=== PATIENT | female | born 1975 | race Hispanic/Latino ===

== ENCOUNTER 2018-05-28 06:14 | Emergency (ER) | payer SELFPAY ==
--- OUTSIDE RECORDS SUMMARY | 2018-05-28 06:15 | XMS REPORT | Clinical Summary ---
:1975 Author Organization [facility] Address [address] [place] [address] Phone Care Team Providers Name Role Phone Unavailable Primary Care Provider Unavailable Allergies No Known Allergies Current Medications Prescription Sig. Disp. Refills Start Date End Date Status polyethylene glycol Take 17 g by 255 g 11 10/26/2016 Active (GLYCOLAX) 17 mouth daily. gram/dose powder ferrous sulfate 325 Take 1 tablet 30 tablet 11 10/26/2016 10/26/2017 (65 FE) MG EC tablet (325 mg total) by mouth daily with breakfast. Active Problems Problem Noted Date Hemorrhoids, unspecified hemorrhoid type 10/29/2016 UGIB (upper gastrointestinal bleed) 10/24/2016 Anemia 10/24/2016 Black stool 10/24/2016 Colicky RUQ abdominal pain 10/24/2016 Social History Tobacco Use Types Packs/Day Years Used Date Never Smoker Sex Assigned at Date Recorded Not on file Last Filed Vital Signs Not on file Plan of Treatment Not on file Results Not on fileafter 05/27/2017
[2018-05-28] MEDS ORDERED: METHYLPREDNISOLONE 125 MG INJ ONE (06:50)
[2018-05-28] MEDS ORDERED: DIPHENHYDRAMINE 50 MG/ML VIAL ONE (06:50)
[2018-05-28] MEDS ORDERED: FAMOTIDINE 20 MG/2 ML VIAL IV ONE (06:50)
[2018-05-28] MEDS ORDERED: ONDANSETRON 4 MG/2 ML VIAL ONE (06:50)
--- NOTE | 2018-05-28 07:30 | EDPHYS ---
Physician Documentation [facility] Name: Salma Reid Age: 42 yrs Sex: Female : 1975 Arrival Date: 05/28/2018 Time: 06:14 Bed 15 Private MD: ED Physician Feng Gomez HPI: 05/28 06:47 This 42 yrs old Female presents to ER via Wheelchair with complaints of jr8 itching and nausea. 06:47 The patient presents with itching, vomiting. Onset: The symptoms/episode began/occurred jr8 acutely, today. Associated signs and symptoms: The patient has no apparent associated signs or symptoms. Possible causes: antibiotics, clindamycin. Severity of symptoms: At their worst the symptoms were mild in the emergency department the symptoms are unchanged. The patient has experienced a previous episode. The patient has not recently seen a physician. Patient has known allergy to clindamycin. Stated that she accidently took one. Started to have itching and nausea . 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 - Ebola Screening: : No symptoms or risks identified at this time. - Social history:: Smoking status: Patient/guardian denies using tobacco. ROS: 06:47 Eyes: Negative for injury, pain, redness, and discharge, ENT: Negative for injury, jr8 pain, and discharge, Neck: Negative for injury, pain, and swelling, Cardiovascular: Negative for chest pain, palpitations, and edema, Respiratory: Negative for shortness of breath, cough, wheezing, and pleuritic chest pain, Back: Negative for injury and pain, MS/Extremity: Negative for injury and deformity, Skin: Negative for injury, rash, and discoloration, Neuro: Negative for headache, weakness, numbness, tingling, and seizure. 06:47 Abdomen/GI: Positive for nausea. Exam: 06:47 Eyes: Pupils equal round and reactive to light, extra-ocular motions intact. Lids and jr8 lashes normal. Conjunctiva and sclera are non-icteric and not injected. Cornea within normal limits. Periorbital areas with no swelling, redness, or edema. ENT: Nares patent. No nasal discharge, no septal abnormalities noted. Tympanic membranes are normal and external auditory canals are clear. Oropharynx with no redness, swelling, or masses, exudates, or evidence of obstruction, uvula midline. Mucous membranes moist. Neck: Trachea midline, no thyromegaly or masses palpated, and no cervical lymphadenopathy. Supple, full range of motion without nuchal rigidity, or vertebral point tenderness. No Meningismus. Cardiovascular: Regular rate and rhythm with a normal S1 and S2. No gallops, murmurs, or rubs. Normal PMI, no JVD. No pulse deficits. Respiratory: Lungs have equal breath sounds bilaterally, clear to auscultation and percussion. No rales, rhonchi or wheezes noted. No increased work of breathing, no retractions or nasal flaring. Abdomen/GI: Soft, non-tender, with normal bowel sounds. No distension or tympany. No guarding or rebound. No evidence of tenderness throughout. Back: No spinal tenderness. No costovertebral tenderness. Full range of motion. Skin: Warm, dry with normal turgor. Normal color with no rashes, no lesions, and no evidence of cellulitis. MS/ Extremity: Pulses equal, no cyanosis. Neurovascular intact. Full, normal range of motion. Neuro: Awake and alert, GCS 15, oriented to person, place, time, and situation. Cranial nerves II-XII grossly intact. Motor strength 5/5 in all extremities. Sensory grossly intact. Cerebellar exam normal. Normal gait. Vital Signs: 06:32 BP 95 / 54; Pulse 72; Resp 16; Temp 98.1; Pulse Ox 99% on R/A; lp1 06:41 Weight 80.74 kg; Height 5 ft. (152.40 cm); ea 07:04 BP 109 / 57; Pulse 71; Resp 16; Pulse Ox 98% on R/A; lp1 07:33 BP 112 / 92; Pulse 79; Resp 17; Pulse Ox 100% ; tw2 06:41 Body Mass Index 34.76 (80.74 kg, 152.40 cm) ea MDM: 06:16 Patient medically screened. jr8 07:28 Data reviewed: vital signs, nurses notes, and as a result, I will discharge patient. jr8 Data interpreted: Pulse oximetry: on room air is 98 %. Interpretation: normal. Counseling: I had a detailed discussion with the patient and/or guardian regarding: the historical points, exam findings, and any diagnostic results supporting the discharge/admit diagnosis, the need for outpatient follow up, a family practitioner, to return to the emergency department if symptoms worsen or persist or if there are any questions or concerns that arise at home. Response to treatment: the patient's symptoms have resolved after treatment. 05/28 06:46 Order name: IV; Complete Time: 07:03 jr8 Administered Medications: 07:03 Drug: SOLU-Medrol 125 mg Route: IVP; Site: left hand; lp1 07:50 Follow up: Response: No adverse reaction em 07:03 Drug: Benadryl 25 mg Route: IVP; Site: left hand; lp1 07:51 Follow up: Response: No adverse reaction; Marked relief of symptoms em 07:03 Drug: Pepcid 20 mg Route: IVP; Site: left hand; lp1 07:51 Follow up: Response: No adverse reaction em 07:04 Drug: Zofran 4 mg Route: IVP; Site: left hand; lp1 07:51 Follow up: Response: No adverse reaction; Nausea is decreased em Disposition: 05/28/18 07:29 Discharged to Home. Impression: Allergic Reaction. - Condition is Stable. - Discharge Instructions: Anaphylactic Reaction, Adult. - Prescriptions for Prednisone 20 mg Oral Tablet - take 1 tablet by ORAL route once daily for 5 days; 5 tablet. - Medication Reconciliation Form, Thank You Letter, Antibiotic Education, Prescription Opioid Use form. - Follow up: Private Physician; When: 2 - 3 days; Reason: Recheck today's complaints, Continuance of care, Re-evaluation by your physician. - Problem is new. - Symptoms have improved. Addendum: 05/30/2018 07:11 Co-signature as Attending Physician, Feng Gomez MD. r n Signatures: Feng Gomez MD MD rn Pena, Laura RN RN lp1 Jarrell Ferrell PA PA jr8 Sasha Mclean RN RN tw2 Nasreen Trotter RN RN Kraig Garay [employer] em Corrections: (The following items were deleted from the chart) 05/28 07:55 07:29 05/28/2018 07:29 Discharged to Home. Impression: Allergic Reaction. Condition is tw2 Stable. Forms are Medication Reconciliation Form, Thank You Letter, Antibiotic Education, Prescription Opioid Use. Follow up: Private Physician; When: 2 - 3 days; Reason: Recheck today's complaints, Continuance of care, Re-evaluation by your physician. Problem is new. Symptoms have improved. jr8
--- NOTE | 2018-05-28 07:30 | ER ---
Nurse's Notes [facility] Name: Salma Reid Age: 42 yrs Sex: Female : 1975 Arrival Date: 05/28/2018 Time: 06:14 Bed 15 Private MD: Diagnosis: Allergic Reaction Presentation: 05/28 06:29 Presenting complaint: Patient states: Reports she had accidentally taken clindamycin ea thinking it was amoxicillin. Pt reports she recently found out she was allergic to the medication. Pt reports she started itching and her tongue, lips felt swollen. Transition of care: patient was not received from another setting of care. Onset of symptoms was May 28, 2018. Risk Assessment: Do you want to hurt yourself or someone else? Patient reports no desire to harm self or others. Initial Sepsis Screen: Does the patient meet any 2 criteria? No. Patient's initial sepsis screen is negative. Does the patient have a suspected source of infection? No. Patient's initial sepsis screen is negative. Care prior to arrival: None. 06:29 Method Of Arrival: Wheelchair ea 06:29 Acuity: YESSENIA 3 ea Triage Assessment: 06:37 General: Appears uncomfortable, Behavior is anxious. General: Pt reports she is itching ea all over. . Pain: Denies pain. Neuro: Level of Consciousness is awake, alert, obeys commands, Oriented to person, place, time, situation. Respiratory: Airway is patent Respiratory effort is even, unlabored, Respiratory pattern is regular, symmetrical. Derm: Skin is pink, warm \T\ dry. 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 - Ebola Screening: : No symptoms or risks identified at this time. - Social history:: Smoking status: Patient/guardian denies using tobacco. Screenin:31 Abuse screen: Denies threats or abuse. Denies injuries from another. Nutritional lp1 screening: No deficits noted. Tuberculosis screening: No symptoms or risk factors identified. Fall Risk None identified. Assessment: 06:31 General: Appears uncomfortable, Behavior is anxious. Pain: Denies pain. Neuro: Level of lp1 Consciousness is awake, alert, obeys commands. Cardiovascular: Patient's skin is warm and dry. Respiratory: Airway is patent Respiratory effort is even, unlabored, Breath sounds are clear bilaterally. GI: Pt is actively vomiting undigested food, x1. : No signs and/or symptoms were reported regarding the genitourinary system. EENT: No signs and/or symptoms were reported regarding the EENT system. Derm: Skin is pink, warm \T\ dry. Reports itching, No rash noted. Musculoskeletal: Circulation, motion, and sensation intact. 07:04 Reassessment: small patch of hives noted to right forearm. lp1 07:24 Reassessment: Patient appears in no apparent distress at this time. Patient and/or em family updated on plan of care and expected duration. Pain level reassessed. Patient is alert, oriented x 3, equal unlabored respirations, skin warm/dry/pink. hives have resolved, denies itching or symptoms Patient denies pain at this time. Patient states feeling better. Vital Signs: 06:32 BP 95 / 54; Pulse 72; Resp 16; Temp 98.1; Pulse Ox 99% on R/A; lp1 06:41 Weight 80.74 kg; Height 5 ft. (152.40 cm); ea 07:04 BP 109 / 57; Pulse 71; Resp 16; Pulse Ox 98% on R/A; lp1 07:33 BP 112 / 92; Pulse 79; Resp 17; Pulse Ox 100% ; tw2 06:41 Body Mass Index 34.76 (80.74 kg, 152.40 cm) ED Course: 06:14 Patient arrived in ED. ds1 06:16 Jarrell Ferrell PA is PHCP. jr8 06:16 Feng Gomez MD is Attending Physician. jr8 06:30 Marianne Yeboah RN is Primary Nurse. lp1 06:30 Inserted saline lock: 20 gauge in left hand, using aseptic technique. lp1 06:32 Arm band placed on right wrist. lp1 06:33 Patient has correct armband on for positive identification. Pulse ox on. NIBP on. lp1 06:37 Triage completed. ea 07:54 No provider procedures requiring assistance completed. IV discontinued, intact, tw2 bleeding controlled, No redness/swelling at site. Pressure dressing applied. Administered Medications: 07:03 Drug: SOLU-Medrol 125 mg Route: IVP; Site: left hand; lp1 07:50 Follow up: Response: No adverse reaction em 07:03 Drug: Benadryl 25 mg Route: IVP; Site: left hand; lp1 07:51 Follow up: Response: No adverse reaction; Marked relief of symptoms em 07:03 Drug: Pepcid 20 mg Route: IVP; Site: left hand; lp1 07:51 Follow up: Response: No adverse reaction em 07:04 Drug: Zofran 4 mg Route: IVP; Site: left hand; lp1 07:51 Follow up: Response: No adverse reaction; Nausea is decreased em Outcome: 07:29 Discharge ordered by . jr8 07:54 Discharged to home ambulatory. tw2 07:54 Condition: stable 07:54 Discharge instructions given to patient, Instructed on discharge instructions, follow up and referral plans. medication usage, Demonstrated understanding of instructions, follow-up care, medications, Prescriptions given X 1. 07:55 Patient left the ED. tw2 Signatures: Kraig Andrews LVN FINANCIAL SALES REPRESENTATIVE Shayy Beebe ds1 Marianne Yeboah RN RN lp1 Jarrell Ferrell PA PA jr8 Sasha Mclean RN RN tw2 Nasreen Trotter RN RN ea Corrections: (The following items were deleted from the chart) 06:33 06:32 Arm band placed on left wrist. lp1 lp1
== END 2018-05-28 07:55 | disposition home or self-care (01) ==
LOC: ER 06:14
DX: T78.40XA Allergy, unspecified, initial encounter (principal); X58.XXXA Exposure to other specified factors, initial encounter; Z88.1 Allergy status to other antibiotic agents; R11.0 Nausea; L29.9 Pruritus, unspecified
CPT/HCPCS: 96374; 96375; 99284; J2405; J2930

== ENCOUNTER 2018-06-21 08:18 | Emergency (ER) | payer SELFPAY ==
[2018-06-21] MEDS ORDERED: DIPHENHYDRAMINE 50 MG/ML VIAL ONE (08:49)
[2018-06-21] MEDS ORDERED: METHYLPREDNISOLONE 125 MG INJ ONE (08:49)
[2018-06-21] MEDS ORDERED: FAMOTIDINE 20 MG/2 ML VIAL IV ONE (08:50)
[2018-06-21] MEDS ORDERED: NA CHLORIDE 0.9% 250 ML ONE (08:50)
[2018-06-21] MEDS ORDERED: NA CHLORIDE 0.9% 500 ML ONE (09:14)
[2018-06-21] MEDS ORDERED: ONDANSETRON 4 MG/2 ML VIAL ONE (09:16)
--- NOTE | 2018-06-21 10:10 | ER ---
Nurse's Notes [facility] Name: Salma Reid Age: 42 yrs Sex: Female : 1975 Arrival Date: 06/21/2018 Time: 08:20 Bed 24 Private MD: None, None Diagnosis: Acute allergic reaction Presentation: 06/21 08:33 Presenting complaint: Patient states: Patient reports she took an unknown antibiotic ss this morning and began itching shortly after, a similar reaction she had when she took penicillin. Denies shortness of breath. Transition of care: patient was not received from another setting of care. Onset: The symptoms/episode began/occurred this morning. Anaphylaxis evaluation, no signs or symptoms of anaphylaxis were noted. Onset of symptoms was June 21, 2018. Risk Assessment: Do you want to hurt yourself or someone else? Patient reports no desire to harm self or others. Initial Sepsis Screen: Does the patient meet any 2 criteria? No. Patient's initial sepsis screen is negative. Does the patient have a suspected source of infection? No. Patient's initial sepsis screen is negative. Care prior to arrival: None. 08:33 Method Of Arrival: Ambulatory ss 08:33 Acuity: YESSENIA 4 ss Historical: - Allergies: 08:35 Clindamycin; ss 08:35 PENICILLINS; ss - PMHx: 08:35 Kidney stones; Rheumatoid Arthritis; ss - PSHx: 08:35 ; ss - Immunization history:: Adult Immunizations up to date. - Social history:: Smoking status: Patient/guardian denies using tobacco. - Ebola Screening: : Patient denies exposure to infectious person Patient denies travel to an Ebola-affected area in the 21 days before illness onset. - Family history:: not pertinent. - Hospitalizations: : No recent hospitalization is reported. Screenin:48 Abuse screen: Denies threats or abuse. Denies injuries from another. Nutritional ch screening: No deficits noted. Tuberculosis screening: No symptoms or risk factors identified. Fall Risk None identified. Assessment: 08:35 General: Appears in no apparent distress. uncomfortable, Behavior is anxious. Pain: ch Denies pain. Neuro: No deficits noted. Level of Consciousness is awake, alert, obeys commands. Cardiovascular: No deficits noted. Respiratory: Airway is patent Trachea midline Respiratory effort is even, unlabored, Breath sounds are clear bilaterally. GI: No signs and/or symptoms were reported involving the gastrointestinal system. Derm: Skin is intact, Skin is pink, warm \T\ dry. pt c/o itching all over, feeling tight in her ankles, feet and barney wrists/hands. states she feels anxious as well. 08:35 Musculoskeletal: No signs and/or symptoms reported regarding the musculoskeletal system.ch 09:05 Reassessment: Patient appears in no apparent distress at this time. pt states the ch ichting is better but she feels very dizzy and nausous. erp notified, pt medicated per orders. 09:48 Reassessment: Patient appears in no apparent distress at this time. Patient and/or ch family updated on plan of care and expected duration. Pain level reassessed. Patient is alert, oriented x 3, equal unlabored respirations, skin warm/dry/pink. Vital Signs: 08:35 BP 113 / 64; Pulse 76; Resp 18; Temp 98.0; Pulse Ox 98% on R/A; Weight 78.02 kg; Height ss 5 ft. 0 in. (152.40 cm); Pain 0/10; 09:48 BP 108 / 62; Pulse 64; Resp 15; Temp 98.3; Pulse Ox 99% on R/A; Pain 0/10; ch 08:35 Body Mass Index 33.59 (78.02 kg, 152.40 cm) ED Course: 08:20 Patient arrived in ED. sb2 08:20 None, None is Private Physician. sb2 08:27 Feng Gomez MD is Attending Physician. rn 08:34 Triage completed. ss 08:35 Arm band placed on right wrist. ss 08:40 Patient has correct armband on for positive identification. Placed in gown. Bed in low ch position. Call light in reach. Side rails up X 1. Adult w/ patient. Pulse ox on. NIBP on. 08:43 Michelle Lopez, MARILIN is Primary Nurse. ch 08:45 No apparent distress. Resting quietly. ch 08:45 No provider procedures requiring assistance completed. Inserted saline lock: 22 gauge ch in right hand, using aseptic technique. Blood collected. 10:20 IV discontinued, intact, bleeding controlled, No redness/swelling at site. Pressure ch dressing applied. Administered Medications: 08:45 Drug: SOLU-Medrol 125 mg Route: IVP; Site: right hand; ch 09:15 Follow up: Response: No adverse reaction; Marked relief of symptoms ch 08:45 Drug: Benadryl 25 mg Route: IVP; Site: right hand; ch 09:15 Follow up: Response: No adverse reaction; Marked relief of symptoms ch 09:15 Follow up: Response: No adverse reaction; Marked relief of symptoms ch 08:45 Drug: Pepcid 20 mg Route: IVP; Site: right hand; ch 09:15 Follow up: Response: No adverse reaction; Marked relief of symptoms ch 09:15 Drug: NS 0.9% 500 ml Route: IV; Rate: bolus; Site: right hand; ch 10:21 Follow up: IV Status: Completed infusion ch 09:15 Drug: Zofran 4 mg Route: IVP; Site: right hand; ch 09:50 Follow up: Response: No adverse reaction; Marked relief of symptoms ch Outcome: 10:10 Discharge ordered by . rn 10:20 Discharged to home ambulatory. 10:20 Condition: good 10:20 Discharge instructions given to patient, Instructed on discharge instructions, follow up and referral plans. medication usage, Demonstrated understanding of instructions, follow-up care, medications, Prescriptions given X 2. 10:21 Patient left the ED. Signatures: Michelle Lopez RN MARILIN Feng Gomez MD MD rn Smirch, Shelby, RN RN ss Billeau, Sheri sb2
--- NOTE | 2018-06-21 10:10 | EDPHYS ---
Physician Documentation [facility] Name: Salma Reid Age: 42 yrs Sex: Female : 1975 Arrival Date: 06/21/2018 Time: 08:20 Bed 24 Private MD: None, None ED Physician Feng Gomez HPI: 06/21 08:57 This 42 yrs old Female presents to ER via Ambulatory with complaints of rn Allergic Reaction. 08:57 The patient presents with itching. Onset: The symptoms/episode began/occurred this rn morning. Associated signs and symptoms: Pertinent positives: nausea, Pertinent negatives: abdominal pain, fever, shortness of breath, vomiting. Possible causes: antibiotics. At home the patient or guardian has treated the symptoms with nothing. Severity of symptoms: At their worst the symptoms were mild in the emergency department the symptoms are unchanged. The patient has experienced a previous episode. The patient has been recently seen by a physician:. Reports thinks having allergic reaction, given an abx for dental problem, thinks clindamycin, is allergic to clindamycin, took this AM, + itching and nausea, no sob/swelling. Similar allergic reaction in past but last time had swollen lips as well.. Historical: - Allergies: 08:35 Clindamycin; ss 08:35 PENICILLINS; ss - PMHx: 08:35 Kidney stones; Rheumatoid Arthritis; ss - PSHx: 08:35 ; ss - Immunization history:: Adult Immunizations up to date. - Social history:: Smoking status: Patient/guardian denies using tobacco. - Ebola Screening: : Patient denies exposure to infectious person Patient denies travel to an Ebola-affected area in the 21 days before illness onset. - Family history:: not pertinent. - Hospitalizations: : No recent hospitalization is reported. ROS: 08:57 Constitutional: Negative for fever, chills, and weight loss, Eyes: Negative for injury, rn pain, redness, and discharge, Cardiovascular: Negative for chest pain, palpitations, and edema, Respiratory: Negative for shortness of breath, cough, wheezing, and pleuritic chest pain, Abdomen/GI: Negative for abdominal pain, vomiting, diarrhea, and constipation, MS/Extremity: Negative for injury and deformity, Skin: Negative for injury, and discoloration, Neuro: Negative for headache, weakness, numbness, tingling, and seizure. Exam: 08:57 Constitutional: This is a well developed, well nourished patient who is awake, alert, rn and in no acute distress. Head/Face: Normocephalic, atraumatic. Eyes: Pupils equal round and reactive to light, extra-ocular motions intact. Lids and lashes normal. Conjunctiva and sclera are non-icteric and not injected. Cornea within normal limits. Periorbital areas with no swelling, redness, or edema. ENT: no oral swelling or lesions Cardiovascular: Regular rate and rhythm with a normal S1 and S2. No gallops, murmurs, or rubs. Normal PMI, no JVD. No pulse deficits. Respiratory: Lungs have equal breath sounds bilaterally, clear to auscultation and percussion. No rales, rhonchi or wheezes noted. No increased work of breathing, no retractions or nasal flaring. Abdomen/GI: Soft, non-tender, with normal bowel sounds. No distension or tympany. No guarding or rebound. No evidence of tenderness throughout. Skin: mild excoriations and light rash to upper ext MS/ Extremity: Pulses equal, no cyanosis. Neurovascular intact. Full, normal range of motion. Equal circumference. Neuro: Awake and alert, GCS 15, oriented to person, place, time, and situation. Cranial nerves II-XII grossly intact. Motor strength 5/5 in all extremities. Sensory grossly intact. Cerebellar exam normal. Normal gait. Vital Signs: 08:35 BP 113 / 64; Pulse 76; Resp 18; Temp 98.0; Pulse Ox 98% on R/A; Weight 78.02 kg; Height ss 5 ft. 0 in. (152.40 cm); Pain 0/10; 09:48 BP 108 / 62; Pulse 64; Resp 15; Temp 98.3; Pulse Ox 99% on R/A; Pain 0/10; ch 08:35 Body Mass Index 33.59 (78.02 kg, 152.40 cm) ss MDM: 08:27 Patient medically screened. rn 10:09 Differential diagnosis: urticaria, allergic reaction. Data reviewed: vital signs, rn nurses notes, and as a result, I will discharge patient. Counseling: I had a detailed discussion with the patient and/or guardian regarding: the historical points, exam findings, and any diagnostic results supporting the discharge/admit diagnosis, the need for outpatient follow up, to return to the emergency department if symptoms worsen or persist or if there are any questions or concerns that arise at home. Response to treatment: the patient's symptoms have markedly improved after treatment, and as a result, I will discharge patient. Special discussion: I discussed with the patient/guardian in detail that at this point there is no indication for admission to the hospital. It is understood, however, that if the symptoms persist or worsen the patient needs to return immediately for re-evaluation. 06/21 08:31 Order name: IV Start; Complete Time: 09:07 rn Administered Medications: 08:45 Drug: SOLU-Medrol 125 mg Route: IVP; Site: right hand; ch 09:15 Follow up: Response: No adverse reaction; Marked relief of symptoms ch 08:45 Drug: Benadryl 25 mg Route: IVP; Site: right hand; ch 09:15 Follow up: Response: No adverse reaction; Marked relief of symptoms ch 09:15 Follow up: Response: No adverse reaction; Marked relief of symptoms ch 08:45 Drug: Pepcid 20 mg Route: IVP; Site: right hand; ch 09:15 Follow up: Response: No adverse reaction; Marked relief of symptoms ch 09:15 Drug: NS 0.9% 500 ml Route: IV; Rate: bolus; Site: right hand; ch 10:21 Follow up: IV Status: Completed infusion ch 09:15 Drug: Zofran 4 mg Route: IVP; Site: right hand; ch 09:50 Follow up: Response: No adverse reaction; Marked relief of symptoms ch Disposition: 06/21/18 10:10 Discharged to Home. Impression: Acute allergic reaction. - Condition is Stable. - Discharge Instructions: Drug Allergy. - Prescriptions for Prednisone 20 mg Oral Tablet - take 3 tablet by ORAL route once daily for 5 days; 15 tablet. EpiPen 0.3 mg Injection auto- injector - inject 1 pen by INTRAMUSCULAR route one time As needed Inject into the outer portion of the thigh, through clothing if necessary. Indicated in the emergency treatment of allergic reactions; 2 packet. - Medication Reconciliation Form, Thank You Letter, Antibiotic Education, Prescription Opioid Use form. - Follow up: Private Physician; When: As needed; Reason: Recheck today's complaints, Re-evaluation by your physician. - Problem is new. - Symptoms have improved. Signatures: Michelle Lopez RN RN Feng Gomez MD [facility]n [facility] RN RN Corrections: (The following items were deleted from the chart) 10:21 10:10 06/21/2018 10:10 Discharged to Home. Impression: Acute allergic reaction. ch Condition is Stable. Forms are Medication Reconciliation Form, Thank You Letter, Antibiotic Education, Prescription Opioid Use. Follow up: Private Physician; When: As needed; Reason: Recheck today's complaints, Re-evaluation by your physician. Problem is new. Symptoms have improved. rn
== END 2018-06-21 10:21 | disposition home or self-care (01) ==
LOC: ER 08:18
DX: T36.95XA Adverse effect of unspecified systemic antibiotic, initial encounter (principal); Y92.9 Unspecified place or not applicable; Z88.0 Allergy status to penicillin; Z88.3 Allergy status to other anti-infective agents
CPT/HCPCS: 96361; 96374; 96375; 99284; J2405; J2930

== ENCOUNTER 2019-04-02 19:30 | Emergency (ER) | payer SELFPAY ==
--- OUTSIDE RECORDS SUMMARY | 2019-04-02 19:33 | XMS REPORT ---
:1975 [facility] [address] [place] [address] [place] [id number] Care Team Providers Name Role Phone Unavailable Unavailable Unavailable Problems This patient has no known problems. Allergies, Adverse Reactions, Alerts This patient has no known allergies or adverse reactions. Medications This patient has no known medications.
--- NOTE | 2019-04-02 20:11 | ER ---
Nurse's Notes [facility] Name: Salma Reid Age: 43 yrs Sex: Female : 1975 Arrival Date: 04/02/2019 Time: 19:34 Bed Treatment Private MD: Diagnosis: Dental caries Presentation: 04/02 19:35 Presenting complaint: Patient states: N/V, headache, and toothache for 2 days. Care aj prior to arrival: None. 19:35 Method Of Arrival: Ambulatory aj 19:35 Acuity: YESSENIA 4 aj Triage Assessment: 19:37 General: Appears in no apparent distress. uncomfortable, Behavior is calm, cooperative, aj appropriate for age. Pain: Complains of pain in face and mouth. EENT: Reports pain in mouth. Respiratory: Airway is patent Respiratory effort is even, unlabored, Respiratory pattern is regular, symmetrical. Derm: Skin is intact, is healthy with good turgor, Skin is pink, warm \T\ dry. normal. Historical: - Allergies: 19:37 Clindamycin; aj 19:37 PENICILLINS; aj - Immunization history:: Adult Immunizations unknown. - Social history:: Patient/guardian denies using alcohol, street drugs, The patient lives with family, Smoking status: Patient/guardian denies using tobacco. - Family history:: not pertinent. Screenin:40 Abuse screen: Denies threats or abuse. Denies injuries from another. Nutritional ed1 screening: No deficits noted. Tuberculosis screening: No symptoms or risk factors identified. Fall Risk None identified. Assessment: 19:40 General: Appears uncomfortable, Behavior is calm, cooperative. Pain: Complains of pain ed1 in mouth Pain currently is 9 out of 10 on a pain scale. Quality of pain is described as burning, throbbing, Pain began 2-3 days ago. Is continuous. Neuro: Level of Consciousness is awake, alert, obeys commands, Oriented to person, place, time, situation. Cardiovascular: Denies chest pain, Heart tones present. Respiratory: Airway is patent Respiratory effort is even, unlabored, Respiratory pattern is regular, symmetrical, Breath sounds are clear bilaterally. GI: Abdomen is non-distended, Bowel sounds present X 4 quads. Abd is soft and non tender X 4 quads. Reports nausea, vomiting. : No signs and/or symptoms were reported regarding the genitourinary system. EENT: Oral mucosa is moist. Poor dentition noted. Derm: Skin is pink, warm \T\ dry. Musculoskeletal: Circulation, motion, and sensation intact. 20:48 Reassessment: Patient appears in no apparent distress at this time. Patient and/or ed1 family updated on plan of care and expected duration. Pain level reassessed. Patient is alert, oriented x 3, equal unlabored respirations, skin warm/dry/pink. Patient states feeling better. Patient states symptoms have improved. Vital Signs: 19:37 BP 126 / 67; Pulse 85; Resp 18; Temp 98.5; Pulse Ox 99% on R/A; Weight 79.38 kg; Height fc 5 ft. 3 in. (160.02 cm); 20:48 BP 123 / 76; Pulse 81; Resp 19; Temp 97.1(O); Pulse Ox 100% on R/A; Pain 6/10; ed1 19:37 Body Mass Index 31.00 (79.38 kg, 160.02 cm) ED Course: 19:34 Patient arrived in ED. es 19:36 Triage completed. aj 19:37 Arm band placed on left wrist. Patient placed in an exam room. aj 19:40 Patient has correct armband on for positive identification. Bed in low position. Call ed1 light in reach. Adult w/ patient. 19:40 No provider procedures requiring assistance completed. ed1 19:48 Remington Escalera MD is Attending Physician. ma2 19:54 Genet Son RN is Primary Nurse. ed1 20:48 Patient did not have IV access during this emergency room visit. ed1 Administered Medications: 20:29 Drug: TORadol 60 mg Route: IM; Site: left ventrogluteal; ed1 20:50 Follow up: Response: No adverse reaction; Pain is decreased ed1 20:29 Drug: Rocephin (cefTRIAXone) 1 grams Route: IM; Site: right ventrogluteal; ed1 20:49 Follow up: Response: No adverse reaction ed1 Outcome: 20:11 Discharge ordered by . ma2 20:48 Discharged to home ambulatory, with family. ed1 20:48 Condition: good 20:48 Discharge instructions given to patient, family, Instructed on discharge instructions, follow up and referral plans. medication usage, Demonstrated understanding of instructions, follow-up care, medications, Prescriptions given X 2. 20:50 Patient left the ED. ed1 Signatures: Nelida Alva RN RN Trina Graham Felicia, RN RN Genet Son RN RN ed1 Remington Escalera MD MD ma2 Corrections: (The following items were deleted from the chart) 19:43 19:37 BP 126 / 67; Pulse 185bpm; Resp 85bpm; Pulse Ox 99% RA; Temp 98.5F; 79.38 kg; fc Height 5 ft. 3 in.; BMI: 31.0; aj
--- NOTE | 2019-04-02 20:12 | EDPHYS ---
Physician Documentation [facility] Name: Salma Reid Age: 43 yrs Sex: Female : 1975 Arrival Date: 04/02/2019 Time: 19:34 Bed Treatment Private MD: ED Physician Remington Escalera HPI: 04/02 20:09 This 43 yrs old Female presents to ER via Ambulatory with complaints of ma2 Toothache, Fever, Vomiting. 20:09 The patient presents with tooth aches for 1 week . Onset: The symptoms/episode ma2 began/occurred gradually, 9 day(s) ago. Duration: The symptoms are intermittent. Associated signs and symptoms: Pertinent negatives: dysphagia, inability to eat, pain, swelling. Severity of symptoms: At their worst the symptoms were moderate, in the emergency department the symptoms are unchanged. The patient has experienced similar episodes in the past. Historical: - Allergies: 19:37 Clindamycin; aj 19:37 PENICILLINS; aj - Immunization history:: Adult Immunizations unknown. - Social history:: Patient/guardian denies using alcohol, street drugs, The patient lives with family, Smoking status: Patient/guardian denies using tobacco. - Family history:: not pertinent. ROS: 20:09 Constitutional: Negative for fever, chills, and weight loss. ma2 20:09 ENT: Positive for dental pain, Negative for foreign body sensation, pulling at ears, tinnitus, rhinorrhea. 20:09 All other systems are negative. Exam: 20:09 Constitutional: This is a well developed, well nourished patient who is awake, alert, ma2 and in no acute distress. 20:09 Head/Face: Normocephalic, atraumatic. Eyes: Pupils equal round and reactive to light, extra-ocular motions intact. Lids and lashes normal. Conjunctiva and sclera are non-icteric and not injected. Cornea within normal limits. Periorbital areas with no swelling, redness, or edema. Neck: Trachea midline, no thyromegaly or masses palpated, and no cervical lymphadenopathy. Supple, full range of motion without nuchal rigidity, or vertebral point tenderness. No Meningismus. Chest/axilla: Normal chest wall appearance and motion. Nontender with no deformity. No lesions are appreciated. Cardiovascular: Regular rate and rhythm with a normal S1 and S2. No gallops, murmurs, or rubs. Normal PMI, no JVD. No pulse deficits. Respiratory: Lungs have equal breath sounds bilaterally, clear to auscultation and percussion. No rales, rhonchi or wheezes noted. No increased work of breathing, no retractions or nasal flaring. Abdomen/GI: Soft, non-tender, with normal bowel sounds. No distension or tympany. No guarding or rebound. No evidence of tenderness throughout. Skin: Warm, dry with normal turgor. Normal color with no rashes, no lesions, and no evidence of cellulitis. MS/ Extremity: Pulses equal, no cyanosis. Neurovascular intact. Full, normal range of motion. Neuro: Awake and alert, GCS 15, oriented to person, place, time, and situation. Cranial nerves II-XII grossly intact. Motor strength 5/5 in all extremities. Sensory grossly intact. Cerebellar exam normal. Normal gait. 20:09 ENT: Dental exam: dental caries, the patient wears dentures, gum swelling. Vital Signs: 19:37 BP 126 / 67; Pulse 85; Resp 18; Temp 98.5; Pulse Ox 99% on R/A; Weight 79.38 kg; Height fc 5 ft. 3 in. (160.02 cm); 20:48 BP 123 / 76; Pulse 81; Resp 19; Temp 97.1(O); Pulse Ox 100% on R/A; Pain 6/10; ed1 19:37 Body Mass Index 31.00 (79.38 kg, 160.02 cm) MDM: 19:49 Patient medically screened. ma2 20:09 Differential diagnosis: gingivitis, pericoronitis, gingivostomatitis. Data reviewed: [facility] vital signs, nurses notes. Counseling: I had a detailed discussion with the patient and/or guardian regarding: the historical points, exam findings, and any diagnostic results supporting the discharge/admit diagnosis, the presence of at least one elevated blood pressure reading (>120/80) during this emergency department visit, the need for outpatient follow up. Response to treatment: the patient's symptoms have mildly improved after treatment, the patient's symptoms have markedly improved after treatment. Administered Medications: 20:29 Drug: TORadol 60 mg Route: IM; Site: left ventrogluteal; ed1 20:50 Follow up: Response: No adverse reaction; Pain is decreased ed1 20:29 Drug: Rocephin (cefTRIAXone) 1 grams Route: IM; Site: right ventrogluteal; ed1 20:49 Follow up: Response: No adverse reaction ed1 Disposition: 04/02/19 20:11 Discharged to Home. Impression: Dental caries. - Condition is Stable. - Discharge Instructions: Dental Pain. - Prescriptions for Clindamycin HCl 300 mg Oral Capsule - take 1 capsule by ORAL route every 6 hours for 10 days; 40 capsule. Tylenol- Codeine #3 300-30 mg Oral Tablet - take 2 tablet by ORAL route every 6 hours As needed; 6 tablet. - Medication Reconciliation Form, Thank You Letter, Antibiotic Education, Prescription Opioid Use form. - Follow up: Private Physician; When: Tomorrow; Reason: Continuance of care. Signatures: Nelida Alva RN RN aj Genet Son RN RN ed1 Remington Escalera MD MD ma2 Corrections: (The following items were deleted from the chart) 20:50 20:11 04/02/2019 20:11 Discharged to Home. Impression: Dental caries. Condition is ed1 Stable. Forms are Medication Reconciliation Form, Thank You Letter, Antibiotic Education, Prescription Opioid Use. Follow up: Private Physician; When: Tomorrow; Reason: Continuance of care. ma2
[2019-04-02] MEDS ORDERED: CEFTRIAXONE 1000 MG/VIAL ONE (20:37)
[2019-04-02] MEDS ORDERED: WATER FOR INJ,STERILE 10 ML ONE (20:37)
[2019-04-02] MEDS ORDERED: KETOROLAC 30 MG/ML INJ ONE (20:37)
== END 2019-04-02 20:50 | disposition home or self-care (01) ==
LOC: ER 19:30
DX: K02.9 Dental caries, unspecified (principal); Z88.0 Allergy status to penicillin; Z88.3 Allergy status to other anti-infective agents
CPT/HCPCS: 96372; 99283

== ENCOUNTER 2020-09-11 19:54 | Emergency (ER) | payer OTHER, SELFPAY ==
--- OUTSIDE RECORDS SUMMARY | 2020-09-11 19:57 | XMS REPORT | Summary of Care ---
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 Primary Care Provider Reason for Referral Radiology Services (Routine) Status Reason Specialty Diagnoses / Referred By Referred To Procedures Contact Contact New Request Diagnostic Diagnoses Well woman exam [place], Radiology Procedures BI SCREENING MAMMOGRAM BILATERAL CROW Mariano [address] [facility] [address] Reason for Visit Reason Comments Well Woman Exam Encounter Details Date Type Department Care Team Description [facility] Oth er general counseling and advice for contraceptive management (Primary Dx); CROW Hung Need for influenza vaccination; [address] [place] [address] Well woman exam; [facility] Obesity (BMI 30.0-34.9); [place], [place] [address] Pain pelvic; [id number] Other depression; [phone] Screen fo r STD (sexually transmitted disease); UTI symptoms Allergies Active Allergy Reactions Severity Noted Date Comments Penicillins Swelling 01/15/2020 documented as of this encounter (statuses as of 08/08/2020) Medications Medication Sig Dispensed Refills Start Date End Date Status Nitrofurantoin&Nit. Take 1 capsule by 20 capsule 0 08/04/2020 Active Macrocryst (MACROBID) mouth 2 (two) 100 mg times daily. 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 Breast pain 12/05/2019 Well woman exam 12/26/2018 Encounter for contraceptive management, unspecified ty pe 12/26/2018 Screening examination for STD (sexually transmitted di sease) 12/26/2018 Class 1 obesity due to excess calories with body mass index (BMI) of 32.0 12/26/2018 to 32.9 in adult, unspecified whether serious comorbid ity present BMI 32.0-32.9,adult 12/26/2018 Other depression 12/20/2017 Obesity (BMI 30.0-34.9) 12/20/2017 documented as of this encounter (statuses as of 08/08/2020) Immunizations Name Administration Dates Next Due Influenza Virus Vaccine Quad .5 mL IM 6+ MO 08/04/2020 TDAP (ADACEL) VACCINE 12/20/2014 documented as of this encounter Social History Tobacco Use Types Packs/Day Years Used Date Never Smoker Smokeless Tobacco: Never Used Alcohol Use Drinks/Week oz/Week Comments No Sex Assigned at Date Recorded Not on file COVID-19 Exposure Response Date Recorded In the last month, have you been in contact with No / Unsure 08/04/2020 3:24 PM CDT someone who was confirmed or suspected to have Coronavirus / COVID-19? documented as of this encounter Last Filed Vital Signs Vital Sign Reading Time Taken Comments Blood Pressure 111/72 08/04/2020 3:25 PM CDT Pulse 73 08/04/2020 3:25 PM CDT Temperature 37.1 C (98.8 F) 08/04/2020 3:25 PM CDT Respiratory Rate 16 08/04/2020 3:25 PM CDT Oxygen Saturation - - Inhaled Oxygen Concentration - - Weight 79.5 kg (175 lb 5 oz) 08/04/2020 3:25 PM CDT Height 152.4 cm (5') 08/04/2020 3:25 PM CDT Body Mass Index 34.24 08/04/2020 3:25 PM CDT documented in this encounter Progress Notes Mario Brunner RN - 08/04/2020 3:30 PM CDTDispensed macrobid 100 mg, lot: [id number] Exp: 01/2021. Continue: [id number]. Educated patient on medication. Verbalized understanding. MARIO BRUNNER RN 08/04/2020 4:31 PM Ally Wilkinson PIEDAD - 08/04/2020 3:30 PM CDT Chief complaint: Chief Complaint Patient presents with Well Woman Exam HPI: the patient is here for WWE and contraceptive management. She reports she is doing well for themost part but does reports some lower right side pelvic pain, occasionally lower back discomfort andburning on urination that has been going on for the past month. She declines any new sexual partnerstoday and reports she desires STI testing today. She declines the use of control today and declines the desires on today. Pt (denies) current or past physical, sexual or emotional abuse. Histories OB History Para Term AB Living 4 1 3 SAB TAB Ectopic Multiple Live Births 1 # Outcome Date GA Lbr [place]/2nd Weight Sex Delivery Anes PTL Lv 4 SAB 3 CS-Unspec 2 CS-Unspec 1 CS-Unspec Past Medical History: Diagnosis Date Depression off and on, not on meds Irregular menstrual cycle 01/15/2020 Other depression 12/20/2017 RA (rheumatoid arthritis) 2010 does not take medication Rheumatoid arthritis diagnosed about 7 yrs ago Screening examination for STD (sexually transmitted disease) 12/26/2018 Thyroid disease 2011 does not take any medication Family History Problem Relation Age of Onset Depression Mother Arthritis Mother Diabetes Mother No Significant Medical Problems Father No Significant Medical Problems Brother Other - see comments Maternal Aunt Cancer Paternal Aunt No Significant Medical Problems Maternal Grandmother No Significant Medical Problems Maternal Grandfather No Significant Medical Problems Paternal Grandmother No Significant Medical Problems Paternal Grandfather Asthma NoFHx defects NoFHx Breast Cancer NoFHx Colon Cancer NoFHx Ovarian Cancer NoFHx Uterine Cancer NoFHx Genetic NoFHx Heart NoFHx Hypertension NoFHx High cholesterol NoFHx Mental retardation NoFHx Osteoporosis NoFHx Neurological NoFHx Psychiatry NoFHx Family Status Relation Name Status Mo Alive Fa Alive Sis Alive Bipolar Bro Alive MAunt Alive Alzheimers MUnc Alive PAunt Alive PUnc Alive MGMo MGFa PGMo PGFa NoFHx (Not Specified) Past Surgical History: Procedure Laterality Date SECTION x3 COLPOSCOPY 2017 DILATION AND CURETTAGE (SHX) 1992 [place] REMOVAL OF OVARIAN CYST(S) 2005 Right Ovary removed in ([place]) due to cyst SALPINGECTOMY Right 2002 Social History Socioeconomic History Marital status: Single Spouse name: Not on file Number of children: Not on file Years of education: Not on file Highest education level: Not on file Occupational History Not on file Social Needs Financial resource strain: Not on file Food insecurity Worry: Not on file Inability: Not on file Transportation needs Medical: Not on file Non-medical: Not on file Tobacco Use Smoking status: Never Smoker Smokeless tobacco: Never Used Substance and Sexual Activity Alcohol use: No Drug use: No Sexual activity: Yes Partners: Male control/protection: None Comment: last sexual intercourse: 3+ weeks Lifestyle Physical activity Days per week: Not on file Minutes per session: Not on file Stress: Not on file Relationships Social connections Talks on phone: Not on file Gets together: Not on file Attends jainism service: Not on file Active member of club or organization: Not on file Attends meetings of clubs or organizations: Not on file Relationship status: Not on file Intimate partner violence Fear of current or ex partner: Not on file Emotionally abused: Not on file Physically abused: Not on file Forced sexual activity: Not on file Other Topics Concern Not on file Social History Narrative Patient lives alone with roomates. Pt denies any pets. Patient is jehovah witness. Social History Substance and Sexual Activity Sexual Activity Yes Partners: Male control/protection: None Comment: last sexual intercourse: 3+ weeks Labs Labs are pending. and No visits with results within 3 Month(s) from this visit. Latest known visit with results is: Office Visit on 12/05/2019 Component Date Value C. trachomatis Nucleic A* 12/05/2019 Negative N. gonorrhoeae Nucleic A* 12/05/2019 Negative HIV 1/2 Ag-Ab with Reflex 12/05/2019 Negative HIV Semi-quantitative 12/05/2019 0.07 Radiology Radiology pending. Allergies Salma is allergic to pcn [penicillins]. Medications Salma currently has no medications in their medication list. Review of Systems Constitutional: Negative. HENT: Negative. Eyes: Negative. Respiratory: Negative. Breasts: Negative. Cardiovascular: Negative. Gastrointestinal: Negative. Genitourinary: Negative. Musculoskeletal: Negative. Skin: Negative. Neurological: Negative. Psychiatric/Behavioral: Negative. Endocrine: Endocrine negative BP 111/72 (BP Location: Right arm, Patient Position: Sitting, BP CUFF SIZE: Adult Medium) | Pulse 73 | Temp 37.1 C (98.8 F) (Oral) | Resp 16 | Ht 5' (1.524 m) | Wt 175 lb 5 oz (79.5 kg) | LMP03/24/2020 (Approximate) | BMI 34.24 kg/m Pregravid BMI: Could not be calculated Physical Exam Vitals reviewed. Constitutional: She is oriented to person, place, and time. She appears well- developed and well-nourished. Her body habitus is normal. Neck: No tenderness and no mass. No thyroid nodules and no thyromegaly palpated. No neck adenopathy. Cardiovascular: Regular rate and rhythm. No gallop, no friction rub and no murmur auscultated. No peripheral edema present. Pulmonary/Chest: Breath sounds clear to auscultation. Normal inspiratory effort. Abdominal: Abdomen is soft. No mass palpated. No tenderness present. There is no hepatosplenomegaly,splenomegaly or hepatomegaly. There is no rigidity and no guarding. No hernia palpated or inspected. Neuro/Psychiatric: She has a normal mood and affect. She is oriented to person, place, and time. Skin: No lesion, no rash and no ulceration present. Lymphadenopathy: No neck adenopathy present. No axillary adenopathy present. No inguinal adenopathy present. Genitourinary Comments: Maxine JONES present during exam Breast: Right breast exhibits no mass, no nipple discharge and no tenderness. Left breast exhibits no mass, no nipple discharge and no tenderness. Breasts are symmetrical. Normal left breast and normalright breast Rectal: Rectal exam with normal anal tone. No mass, no external hemorrhoid and no internal hemorrhoid palpated or inspected. External genitalia: Normal external genitalia appropriate for age. Normal hair distribution. No labial lesion. Urethral meatus: Normal urethral meatus size, location and no lesion. No prolapse present. Normal urethral meatus Urethra: Normal urethra. No urethral tenderness, no mass and no urethral scarring palpated. Bladder: Bladder has no fullness, no mass palpated and no tenderness. CVAT- negativeNormal bladder Vagina:Normal vagina. No lesion inspected. Normal estrogen effect. Normal support. No abnormal vaginal discharge found. No lesions in the vagina. Cervix: Normal cervix. No lesion. No tenderness and no discharge present. Uterus: Uterus is normal size, normal contour, normal position and non-tender. Normal uterus Adnexa: Right adnexa without tenderness, ovary enlargement or mass. Left adnexa without tenderness, ovary enlargement or mass. Normal left adnexa and normal right adnexa Anus/perineum: Normal perineum and normal anus. Assessment/Plan Return to clinic in 1 year for WWE or sooner as needed Other general counseling and advice for contraceptive management (primary encounter diagnosis) Comment: none Plan: as needed mgmt Need for influenza vaccination Comment: as ordered Plan: FLU VACC(), 6+ MONTHS, IM, QUAD (FLUZONE/FLULAVAL/FLUARIX) Well woman exam Comment: routine Plan: BI SCREENING MAMMOGRAM BILATERAL Obesity (BMI 30.0-34.9) Comment: see bmi Plan: BMI discussed, appropriate weight gain, sensible diet, and exercise, increased fiber and waterintake and protein low in fat. Encouraged exercise for 30 min everyday; begin regimen with caution to prevent injury. Encouraged to decrease BMI to <25. Educated on how obesity and smoking can affect future and health. Educated on the effects of chronic health problems, tobacco use, and mental health on future pregnancies and/or care home health. Pain pelvic Comment: reports Plan: POCT URINALYSIS W SPECIFIC GRAVITY Other depression Comment: reports Plan: resource list provided PHQ-9: TOTAL SCORE: 24 (08/04/2020 3:00 PM) Depression screen positive. -Follow up with provider scheduled patient provided with resource list on today Screen for STD (sexually transmitted disease) Comment: as ordered Plan: GC & CHLAMYDIA AMPLIFIED ASSAY, HIV 1/2 AG-AB WITH REFLEX UTI symptoms Comment: reports symptoms Plan: Nitrofurantoin&Nit. Macrocryst (MACROBID) 100 mg capsule, URINE CULTURE This visit did not involve counseling and coordination that comprised more than 50% of the visit time. CROW Abdullahi 08/04/2020 4:10 PM Mario Brunner RN - 08/04/2020 3:30 PM CDT44 year old presents to the clinic for wwe. 1) Previous BCM: None 2) Desired BCM: None 3) LMP: 03/24/2020 4) Last [place]: 3+ weeks ago 5) Last Pap: 12/20/2017 Results: Negative HPV: negative 6) Tdap: N/a 7) Gardasil: N/a 8) C/O: Patient having left breast lump and intermittent pelvic pain. PHQ 9 is a 21, denies suicidal and or homicidal ideations. 9) Patient denies history of physical, emotional, or sexual abuse. Patient states that she currently feels safe at home. MARIO BRUNNER RN 08/04/2020 3:38 PM documented in this encounter Plan of Treatment Date Type Specialty Care Team Description 09/29/2020 Appointment Radiology Anna Wilkinson WHCNP [address], [place] [address] [phone] Name Type Priority Associated Diagnoses Order S chedule BI SCREENING MAMMOGRAM IMAGING Routine Well woman exam Ex pected: 08/04/2020, BILATERAL Expires: 2020 Health Maintenance Due Date Last Done Comments PAP SMEAR 12/20/2020 12/20/2017 Breast Cancer Screening 08/04/2021 08/04/2020 (MAMMOGRAM) Depression Screening 08/04/2021 08/04/2020, 08/04/2020 Colorectal Cancer Screening 2023 DTaP,Tdap,and Td Vaccines (2 12/20/2024 12/20/2014 - Td) INFLUENZA VACCINE Completed 08/04/2020 PNEUMOCOCCAL 0-64 YEARS Aged Out No longe r eligible based COMBINED SERIES on patient's age to complete this to pic documented as of this encounter Procedures Procedure Name Priority Date/Time Associated Diagnosis Comme nts POCT TEST Routine 08/04/2020 4:16 Other general Res ults for this PM CDT counseling and advice proced ure are in for contraceptive the result s management section. POCT URINALYSIS Routine 08/04/2020 4:15 Pain pelvic Results for this PM CDT procedure are i n the results section. GC & CHLAMYDIA Routine 08/04/2020 4:15 Screen for STD Results for this AMPLIFIED ASSAY PM CDT (sexually transmitted pro cedure are in disease) the results section. URINE CULTURE Routine 08/04/2020 4:15 UTI symptoms Results fo r this PM CDT procedure are i n the results section. HIV 1/2 AG-AB WITH Routine 08/04/2020 4:10 Screen for STD Res ults for this REFLEX PM CDT (sexually transmitted proced ure are in disease) the results section. FLU VACC Routine 08/04/2020 3:39 Need for influenza ([id number]), 6+ PM CDT vaccination MONTHS, IM, QUAD documented in this encounter Results POCT TEST (08/04/2020 4:16 PM CDT) Pathologist Sig nature POCT PREG Negative On board controls acceptable Yes with C Line POCT PREG LOT # POCT PREG TEST DATE Specimen Urine - URINE, CLEAN CATCH URINE CULTURE (08/04/2020 4:15 PM CDT) URINE CULTURE >100,000 CFU/mL [facility] Escherichia coli SERVICES Specimen Urine - URINE, CLEAN CATCH Organism Antibiotic Method Susceptibility Escherichia coli Ampicillin SUSCEPTIBILITY TESTING 4: Susce ptible Escherichia coli Cefazolin SUSCEPTIBILITY TESTING <=4: Shanti ceptible Escherichia coli Ceftriaxone SUSCEPTIBILITY TESTING <=1: Shanti ceptible Escherichia coli Ciprofloxacin SUSCEPTIBILITY TESTING <=0.25: Susceptible Escherichia coli Ertapenem SUSCEPTIBILITY TESTING <=0.5: S usceptible Escherichia coli Gentamicin SUSCEPTIBILITY TESTING <=1: Shanti ceptible Escherichia coli Levofloxacin SUSCEPTIBILITY TESTING <=0.12: Susceptible Escherichia coli Nitrofurantoin SUSCEPTIBILITY TESTING <=16: Zhao sceptible Escherichia coli Piperacillin/Tazobactam SUSCEPTIBILITY TESTING <=4: Susceptible Escherichia coli Trimethoprim/Sulfamethoxa SUSCEPTIBILITY TESTIN G <=20: Susceptible zole Comment: Nitrofurantoin is not recommended for us e in treating pyelonephritis or systemic disease. Performing Organization Address City/State/Zipcode Phone Number [facility] CLIA: [id number] [place] [address] [place] [address] GC & CHLAMYDIA AMPLIFIED ASSAY (08/04/2020 4:15 PM CDT) Pathologist Sig kaesy C. trachomatis Nucleic Negative Negative [facility] Acid SERVICES N. gonorrhoeae Nucleic Negative Negative [facility] Acid SERVICES Specimen Urine - Urine, First Catch (First Void) Narrative Performed At Reliable results are dependent on adequate specimen [facility] collection. A positive result obtained from a patient after therap eutic treatment cannot be interpreted as indicating the pres ence of viable organisms. For patients on whom a false po sitive result may have adverse psychosocial impact, retesting is advised. Indeterminate: Unable to generate a valid test result on this specimen. Please submit a new specimen for repe at testing if clinically indicated. Chlamydia trachomatis/Neisseria gonorrhoeae nucleic ac id amplification testing (NAAT) has not been validated fo r medico-legal specimens (sexual abuse in audie-pubertal and pre-pubertal children, sexual assault, and legal cases ). Culture for Chlamydia trachomatis and/or Neisseria gonorrhoeae from clinically appropriate sites is the m ethod of choice in these cases. Results from this testing should be interpreted in conjunction with other laboratory and clinical data available to the clinician. For females in general, a urine specimen is a second-l ine option because it is considered less sensitive than a cervical swab for Chlamydia trachomatis and/or Neisser ia gonorrhoeae NAAT. Performing Organization Address City/State/Zipcode Phone Number [facility] CLIA: [id number] [place] [address] [place] [address] POCT URINALYSIS W SPECIFIC GRAVITY (08/04/2020 4:15 PM CDT) Pathologist Sig nature POCT U SP GRAV . 1.005 - 1.025 mg/dl POCT PH U 6 5 - 8 mg/dl POCT U LEUK EST 1+ Negative - Negative POCT U NIT POsitive Negative - Negative POCT U PROT Trace Negative - Negative POCT U GLU Neg Negative - Negative POCT U KETONE None Negative - Negative POCT U UROBILI . 0.2 - 1 mg/dl POCT U BILI . Negative - Negative POCT U BLD Trace Negative - Negative POCT U COLOR POCT U APPEAR Specimen Urine - URINE, CLEAN CATCH HIV 1/2 AG-AB WITH REFLEX (08/04/2020 4:10 PM CDT) Pathologist Sig nature HIV 1/2 Ag-Ab with Negative Negative [facility] Reflex SERVICES HIV Semi-quantitative 0.16 [facility] SERVICES Specimen Blood Narrative Performed At Non-reactive for HIV-1 antigen and HIV-1/HIV-2 antibod ies. [facility] No laboratory evidence of HIV infection. Repeat in 2-4 weeks if acute HIV infection is suspected. Performing Organization Address City/State/Zipcode Phone Number [facility] CLIA: [id number] [place] [address] [place] [address] documented in this encounter Visit Diagnoses Diagnosis Other general counseling and advice for contraceptive management - Primary Need for influenza vaccination Need for prophylactic vaccination and in oculation against influenza Well woman exam Routine general medical examination at a health care facility Obesity (BMI 30.0-34.9) Obesity, unspecified Pain pelvic Unspecified symptom associated with fema le genital organs Other depression Screen for STD (sexually transmitted dis ease) Screening examination for venereal disea se UTI symptoms documented in this encounter Insurance Payer Benefit Plan / Subscriber ID Effective Dates Phone Addre ss Type Group [facility]ANN[facility] [id number] 2020-[place] [facility] PLANNING AUDI AUDI 0-100% ent [id number] [place] [address] documented as of this encounter Advance Directives Name Relationship Healthcare Agent Relationship Co mmunication Leonides Osullivan Child Health Care Agent "
--- OUTSIDE RECORDS SUMMARY | 2020-09-11 19:57 | XMS REPORT | Summary of Care ---
:1975 Author Organization [facility] Address [address] [place] [address] Care Team Providers Name Role Phone Marlee Robin Julissa [facility] Primary Care Provider Reason for Visit Reason Comments UTI Encounter Details Date Type Department Care Team Description 08/07/2020 [facility]phone [facility] Al[facility] C, UTI [address] [place] [address] [phone] [place], [place] [address] [phone] Allergies Active Allergy Reactions Severity Noted Date Comments Penicillins Swelling 01/15/2020 documented as of this encounter (statuses as of 08/07/2020) Medications Medication Sig Dispensed Refills Start Date End Date Status Nitrofurantoin&Nit. Take 1 capsule by 20 capsule 0 08/04/2020 Active Macrocryst (MACROBID) mouth 2 (two) 100 mg times daily. capsuleIndications: UTI symptoms documented as of this encounter (statuses as of 08/07/2020) Active Problems Problem Noted Date Other general [...] as of this encounter (statuses as of 08/07/2020) Immunizations Name Administration Dates Next Due Influenza [...] of this encounter Last Filed Vital Signs Not on filedocumented in this encounter Miscellaneous Notes Telephone Encounter - Mario Brunner RN - 08/07/2020 11:00 AM CDTCalled patient, notified patient positive for UTI. Educated patient on antibiotics, good perineal hygiene, and increasing fluids. Pt verbalized understanding. MARIO BRUNNER RN 08/07/2020 11:00 AM Telephone Encounter - Ally Wilkinson WHCNP - 08/07/2020 10:25 AM CDT Patient was started on meds at her last visit,please advise her to complete the entire course. Please notify the patient of UTI, meds have been sent to the pharmacy. Please advise the patient on good perineal hygiene, drinking plenty of water, and completing the entire course of treatment. CROW Abdullahi 08/07/2020 10:25 AM documented in this encounter Plan of Treatment Date Type Specialty Care Team Description 09/29/2020 Appointment Radiology Anna Wilkinson WHCNP [address], [place] [address] [phone] Health Maintenance Due Date Last Done Comments PAP SMEAR 12/20/2020 12/20/2017 Breast Cancer Screening 08/04/2021 08/04/2020 (MAMMOGRAM) Depression Screening 08/04/2021 08/04/2020, 08/04/2020 Colorectal Cancer Screening 2023 DTaP,Tdap,and Td Vaccines (2 12/20/2024 12/20/2014 - Td) INFLUENZA VACCINE Completed 08/04/2020 PNEUMOCOCCAL 0-64 YEARS Aged Out No longe r eligible based COMBINED SERIES on patient's age to complete this to [facility] documented as of this encounter Results Not on filedocumented in this encounter Insurance Payer Benefit Plan / Subscriber ID Effective Dates Phone Addre ss Type Group [employer]ILY FAMILY PLANNING [id number] 2020-[place] [employer] PLANNING AUDI AUDI 0-100% ent [id number] [place] [address] documented as of this encounter Advance Directives Name Relationship Healthcare Agent Relationship Co mmunication Leonides Osullivan Child Health Care Agent
--- OUTSIDE RECORDS SUMMARY | 2020-09-11 19:57 | XMS REPORT | Continuity of Care Document ---
:1975 Author Organization [facility] t Address [address] [place] [address] Care Team Providers Name Role Phone Ally Huber Attending Clinician [phone] Problems This patient has no known problems. Allergies, Adverse Reactions, Alerts This patient has no known allergies or adverse reactions. Medications This patient has no known medications. Procedures This patient has no known procedures. Encounters Start End Encounter Admission Attending Care Care Encounter Source Date/Time Date/Time Type Type Clinicians Facility Department ID 2020-08-12 2020-08-12 Telephone HECTOR Wilkinson [id number] 00:00:00 00:00:00 Ally Colby BIN OPERATOR [id number] [facility] [id number] MATERNAL [id number] & CHILD 107 [facility] 2020-08-04 2020-08-04 Office HECTOR Wilkinson [id number] 15:09:17 16:29:28 Visit Ally Colby BIN OPERATOR [id number] [facility] [id number] MATERNAL [id number] & CHILD 107 [facility] Results This patient has no known results.
--- OUTSIDE RECORDS SUMMARY | 2020-09-11 19:57 | XMS REPORT | Summary of Care ---
:1975 Author Organization [facility] Address [address] [place] [address] Care Team Providers Name Role Phone Marlee Robin Julissa [facility] Primary Care Provider Reason for Visit Reason Comments UTI Encounter Details Date Type Department Care Team Description 08/07/2020 [facility] C, UTI [address] [place] [address] [phone] [place], [place] [address] [phone] Allergies Active Allergy Reactions Severity Noted Date [...] this encounter Miscellaneous Notes Telephone Encounter - Ally Wilkinson WHCNP - [...] Appointment Radiology Anna Wilkinson WHCNP [address] [place], [place] [address] [phone] Health Maintenance Due Date Last Done Comments PAP SMEAR 12/20/2020 12/20/2017 Breast Cancer Screening 08/04/2021 08/04/2020 (MAMMOGRAM) Depression Screening 08/04/2021 08/04/2020, 08/04/2020 Colorectal Cancer Screening 2023 DTaP,Tdap,and Td Vaccines (2 12/20/2024 12/20/2014 - Td) INFLUENZA VACCINE Completed 08/04/2020 PNEUMOCOCCAL 0-64 YEARS Aged Out No longe r eligible based COMBINED SERIES on patient's age to complete this to [facility] documented as of this encounter Results Not on filedocumented in this encounter Insurance Payer Benefit Plan / Subscriber ID Effective Dates Phone Addre ss Type Group [employer] FAMILY FAMILY PLANNING [id number] 2020-Pres [place] [employer] PLANNING AUDI AUDI 0-100% ent [id number] [place] [address] documented as of this encounter Advance Directives Name Relationship Healthcare Agent Relationship Co mmunication Leonides Osullivan Child Health Care Agent
--- OUTSIDE RECORDS SUMMARY | 2020-09-11 19:57 | XMS REPORT | Summary of Care ---
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 Primary Care Provider Encounter Details Date Type Department Care Team Description 08/04/2020 Orders Only [facility] Doctor Unassigned, No [address] [facility] [place] [address] [address] [place] [address] Allergies Active Allergy Reactions Severity Noted Date Comments Penicillins Swelling 01/15/2020 documented as of this encounter (statuses as of 08/04/2020) Medications No known medicationsdocumented as of this encounter (statuses as of 08/04/2020) Active Problems Problem Noted Date Irregular menstrual cycle 01/15/2020 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 [...] as of this encounter (statuses as of 08/04/2020) Immunizations Name Administration Dates Next Due TDAP (ADACEL) VACCINE 12/20/2014 documented as of this encounter Social History Tobacco Use Types Packs/Day Years Used Date Never Smoker Smokeless Tobacco: Never Used Alcohol Use Drinks/Week oz/Week Comments No Sex Assigned at Date Recorded Not on file documented as of this encounter Last Filed Vital Signs Not on filedocumented in this encounter Plan of Treatment Date Type Specialty Care Team Description 08/04/2020 Office Visit [facility]ell[facility] [address] [place], [place] [address] [phone] Health Maintenance Due Date Last Done Comments Breast Cancer Screening 2013 (MAMMOGRAM) INFLUENZA VACCINE (#1) 2020 PAP SMEAR 12/20/2020 12/20/2017 Depression Screening 01/14/2021 01/15/2020 Colorectal Cancer Screening 2023 DTaP,Tdap,and Td Vaccines (2 - Td) 12/20/2024 12/20/2014 PNEUMOCOCCAL 0-64 YEARS COMBINED Aged Out No longer eligible based on SERIES patient's age to complete this topic documented as of this encounter Procedures Procedure Name Priority Date/Time Associated Diagnosis Comme nts ASSIGNMENT OF BENEFITS Routine 08/04/2020 3:02 PM CDT documented in this encounter Results Not on filedocumented in this encounter Advance Directives Name Relationship Healthcare Agent Relationship Co mmunication Leonides Osullivan Child Health Care Agent
--- OUTSIDE RECORDS SUMMARY | 2020-09-11 19:57 | XMS REPORT | Summary of Care ---
:1975 Author Organization [facility] Address [address] [place] [address] Care Team Providers Name Role Phone Marlee Robin Julissa VP TREASURER Primary Care Provider Reason for Visit Reason Comments Assessment would like to speak with a nurse Encounter Details Date Type Department Care Team Description [facility]2020 [facility] (would like CROW Hung to speak with a nurse [address] [facility] [address] [place] [phone] Allergies Active Allergy Reactions Severity Noted Date Comments Penicillins Swelling 01/15/2020 documented as of this encounter (statuses as of 08/12/2020) Medications Medication Sig Dispensed Refills Start Date End Date Status Nitrofurantoin&Nit. Take 1 capsule by 20 capsule 0 08/04/2020 Active Macrocryst (MACROBID) mouth 2 (two) 100 mg times daily. capsuleIndications: UTI symptoms documented as of this encounter (statuses as of 08/12/2020) Active Problems Problem Noted Date Other general [...] as of this encounter (statuses as of 08/12/2020) Immunizations Name Administration Dates Next Due Influenza [...] Telephone Encounter - Mario Brunner RN - 08/12/2020 1:14 PM CDTCalled patient, patient having abdominal pain and vaginal pain. Requesting pain meds, advised unableto give patient pain meds at this time and no appointments available now. Patient having pain and unable walk per patient. Advised patient to go to Emergency room for evaluation or given resources for urgent care. Patient verbalized understating. MARIO BRUNNER RN 08/12/2020 1:17 PM Telephone Encounter - Michelle Lawson - 08/12/2020 12:50 PM CDTPatient stating she is having pain at vaginal area and would like to speak with a nurse. Patient in Car waiting , states it is urgent . Nurse notified. documented in this encounter Plan of Treatment Date Type Specialty Care Team Description 09/29/2020 Appointment Radiology Anna Wilkinson, CNP [address] [place], [place] [address] [phone] Health Maintenance Due Date Last Done Comments PAP SMEAR 12/20/2020 12/20/2017 Breast Cancer Screening 08/04/2021 08/04/2020 (MAMMOGRAM) Depression Screening 08/04/2021 08/04/2020, 08/04/2020 Colorectal Cancer Screening 2023 DTaP,Tdap,and Td Vaccines (2 12/20/2024 12/20/2014 - Td) INFLUENZA VACCINE Completed 08/04/2020 PNEUMOCOCCAL 0-64 YEARS Aged Out No longe r eligible based COMBINED SERIES on patient's age to complete this to [facility] documented as of this encounter Results Not on filedocumented in this encounter Insurance Payer Benefit Plan / Subscriber ID Effective Dates Phone Addre ss Type Group [employer] FAMILY FAMILY PLANNING [id number] 2020-Pres [place] Agency PLANNING AUDI AUDI 0-100% ent [id number] [place] [address] documented as of this encounter Advance Directives Name Relationship Healthcare Agent Relationship Co mmunication Leonides Osullivan Child Health Care Agent
--- OUTSIDE RECORDS SUMMARY | 2020-09-11 19:57 | XMS REPORT | Summary of Care ---
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 Reason for Referral Radiology Services (Routine) Status Reason Specialty Diagnoses / Referred By Referred To Procedures Contact Contact New Request Diagnostic Diagnoses Well woman exam [place], Radiology Procedures BI SCREENING MAMMOGRAM BILATERAL CROW Mariano [address] [facility] [place] [address] Reason for Visit Reason Comments Well Woman Exam Encounter Details Date Type Department Care Team Description 08/04/2020 [facility]kin[facility]rella loveola Oth er general counseling and advice for contraceptive management (Primary Dx); CROW Hung Need for influenza vaccination; [address] [facility] [address] Well woman exam; [facility] Obesity (BMI 30.0-34.9); [place], [place] [address] Pain pelvic; [phone] Other depression; [phone] Screen fo r STD (sexually transmitted disease); [...] 3:30 PM CDTDispensed macrobid 100 mg, lot: [id number] Exp: 01/2021. Continue: [id number]. Educated patient on [...] COLPOSCOPY 2017 DILATION AND CURETTAGE (SHX) 1992 [place] REMOVAL OF OVARIAN CYST(S) 2005 Right Ovary removed in ([place]) due to cyst SALPINGECTOMY Right 2002 Social [...] file Gets together: Not on file Attends advent service: Not on file Active member of [...] and mental health on future pregnancies and/or alf health. Pain pelvic Comment: reports Plan: POCT [...] time. CROW Abdullahi 08/04/2020 4:10 PM Mario rBunner RN - 08/04/2020 3:30 PM CDT44 year old presents to the clinic for wwe. 1) Previous BCM: None 2) Desired BCM: None 3) LMP: 03/24/2020 4) Last [place]: 3+ weeks ago 5) Last Pap: 12/20/2017 [...] Appointment Radiology Anna Wilkinson WHCNP [address] [place], [place] [address] [phone] Name Type Priority Associated Diagnoses Order S [...] VACC Routine 08/04/2020 3:39 Need for influenza ([id number]), 6+ PM CDT vaccination MONTHS, IM, QUAD documented in this encounter Results POCT TEST (08/04/2020 4:16 PM CDT) Pathologist Sig nature POCT PREG Negative On board controls acceptable Yes with C Line POCT PREG LOT # POCT PREG TEST DATE Specimen Urine - URINE, CLEAN CATCH URINE CULTURE (08/04/2020 4:15 PM CDT) URINE CULTURE >100,000 CFU/mL [facility] Escherichia coli SERVICES Specimen Urine [...] disease. Performing Organization Address City/State/Zipcode Phone Number [facility] CLIA: [id number] [place] [address] [place] [address] GC & CHLAMYDIA AMPLIFIED ASSAY (08/04/2020 4:15 PM CDT) Pathologist Sig kasey C. trachomatis Nucleic Negative Negative [facility] Acid SERVICES N. gonorrhoeae Nucleic Negative Negative [facility] Acid SERVICES Specimen Urine - Urine, First Catch (First Void) Narrative Performed At Reliable results are dependent on adequate specimen [facility] SERVICES collection. A positive result [...] NAAT. Performing Organization Address City/State/Zipcode Phone Number [facility] CLIA: [id number] [place] [address] [place] [address] POCT URINALYSIS W SPECIFIC GRAVITY (08/04/2020 4:15 [...] nature HIV 1/2 Ag-Ab with Negative Negative [facility] Reflex SERVICES HIV Semi-quantitative 0.16 [facility] Specimen Blood Narrative Performed At Non-reactive for HIV-1 antigen and HIV-1/HIV-2 antibod ies. [facility] No laboratory evidence of HIV infection. Repeat in 2-4 weeks if acute HIV infection is suspected. Performing Organization Address City/State/Zipcode Phone Number [facility] CLIA: [id number] [place] [address] [place] [address] documented in this encounter Visit Diagnoses Diagnosis [...] Effective Dates Phone Addre ss Type Group [facility] FAMILY FAMILY PLANNING [id number] 2020-Pres [place] Agency PLANNING AUDI AUDI 0-100% ent [id number] [place] [address] documented as of this encounter Advance Directives Name Relationship Healthcare Agent Relationship Co mmunication Leonides Osullivan Child Health Care Agent "
[2020-09-11] MEDS ORDERED: MORPHINE 2 MG/ML SYR ONE (20:28)
[2020-09-11] MEDS ORDERED: ONDANSETRON 4 MG/2 ML VIAL ONE (20:28)
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
[2020-09-12 18:38] VITALS: TEMP 98
[2020-09-12 18:43] VITALS: BP 111/61; O2SAT 98
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
== END 2020-09-12 00:32 | disposition home or self-care (01) ==
LOC: ER 19:54
DX: S16.1XXA Strain of muscle, fascia and tendon at neck level, initial encounter (principal); S29.012A Strain of muscle and tendon of back wall of thorax, initial encounter; S39.012A Strain of muscle, fascia and tendon of lower back, initial encounter; V49.50XA Passenger injured in collision with unspecified motor vehicles in traffic accident, initial encounter; Z79.82 Long term (current) use of aspirin; Z88.0 Allergy status to penicillin; Z88.3 Allergy status to other anti-infective agents
CPT/HCPCS: 36415; 84703; 82565; 70450; 72125; 71260; 74177; 96375; 96374; 99285; Q9967; J2270; J2405

== ENCOUNTER 2021-11-23 11:28 | Emergency (ER) | payer SELFPAY ==
--- OUTSIDE RECORDS SUMMARY | 2021-11-23 11:33 | XMS REPORT | Continuity of Care Document ---
:1975 Author Organization [facility] t Address [address] [place] [address] Care Team Providers Name Role Phone Nathaniel Pereira DO Attending Clinician Visit, Nurse Attending Clinician Unavailable Julissa Bell Attending Clinician Julissa ROBIN Attending Clinician Unavailable Minh MARIA C Attending Clinician MINH C Attending Clinician Unavailable Doctor Unassigned, Name Attending Clinician Unavailable Payers Payer Name Policy Type Policy Number Effective Date Expiration Date S ource Advance Directives Directive Decision Effective Termination Comments Source Date Date Healthcare Agents on N/A [facility] FileNameRelationRegional Medical Centerealthcare [facility] Agent Medical RelationshipCommunicationSharp [facility] [phone] (Mobile) Problems Condition Condition Condition Status Onset Resolution Last Treating Co mments Source Name Details Category Date Date Treatment Clinician Date Other Other Disease Active 2019- Univers general general 0-12 [place] of counseling [place] advice 00 [place] dical for for Branch contracept contracept terri terri management management Irregular Irregular Disease Active 2020- Uni vers menstrual menstrual 3-24 ity of cycle cycle 00:00: [address] 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 3-24 ity of 00:00: [address] Breast Breast Disease Active 2020-0 Univers pain pain 2-12 ity of 00:00: [address] Class 1 Class 1 Disease Active 2019- Univers obesity obesity 3-05 ity of due to due to 00:00: [place] excess excess 00 Medical calories calories Branch with body with body mass index mass index (BMI) of (BMI) of 32.0 to 32.0 to 32.9 in 32.9 in adult, adult, unspecifie unspecifie d whether d whether serious serious comorbidit comorbidit y present y present BMI BMI Disease Active Univers 32.0-32.9, 32.0-32.9, 3-05 it y of adult adult 00:00: [place] [facility] Screening Screening Disease Active Uni vers examinatio examinatio 3-05 it y of n for STD n [place] ST[place] (sexually 00 [facility] transmitte transmitte Br anch d disease) d disease) Other Other Disease Active Univers depression depression 2-27 it y of 00:00: [place] [facility] Obesity Obesity Disease Active Univers (BMI (BMI 2-27 ity of 30.0-34.9) 30.0-34.9) 00:00: [facility] Branch Allergies, Adverse Reactions, Alerts Allergy Allergy Status Severity Reaction(s) Onset Inactive Treating Comm ents Source Name Type Date Date Clinician PENICILL Drug Active Swelling Univer s INS Class 3-24 ity of 00:00: [place] [facility] Penicill Propensi Active Swelling Univ ers ins ty to 3-24 ity of adverse 00:00: [place] reaction 00 Medical s Branch NO KNOWN Drug Active Univers ALLERGIE Class ity of S [facility] Social History Social Habit Start Date Stop Date Quantity Comments Source Exposure to Not sure [facility] SARS-CoV-2 [facility] (event) Branch Alcohol intake 2020-11-03 2020-11-03 Current University of 00:00:00 00:00:00 non-drinker of [facility] alcohol Branch (finding) Tobacco use and 2020-11-03 2020-11-03 Never used Universit y of exposure 00:00:00 00:00:00 [facility] Sex Ass[birth year] At [birth year] Universit y of 00:00:00 00:00:00 [facility] Smoking Status Start Date Stop Date Source Never smoker [facility] [place] [facility] Medications Ordered Filled Start Stop Current Ordering Indication Dosage Frequency Signature Comments Components Source Medication Medication Date Date Medication? Clinician (SIG) Name Name Nitrofurant 2020- No [id number] 100mg Take 1 Univers oin&Nit. 11-03 capsule by ity of [place] 00:00: 05:59 mouth 2 [place] as (MACROBID) 00 :00 (two) Medical 100 mg times Branch capsule daily for 10 days. Nitrofurant 2020- No [id number] 100mg Take 1 Univers oin&Nit. 11-03 capsule by ity of [place] 00:00: 05:59 mouth 2 [place] as (MACROBID) 00 :00 (two) Medical 100 mg times Branch capsule daily for 10 days. Nitrofurant 2020- No [id number] 100mg Take 1 Univers oin&Nit. 11-03 capsule by ity of [place] 00:00: 05:59 mouth 2 [place] as (MACROBID) 00 :00 (two) Medical 100 mg times Branch capsule daily for 10 days. metroNIDAZO Yes [id number] 500mg Take 1 Univers LE 500 mg 1-07 tablet by ity o f tablet 00:00: mouth 2 00 (two) Medical times Branch daily. metroNIDAZO 2020-0 Yes [id number] 500mg Take 1 Univers LE 500 mg 1-07 tablet by ity o f tablet 00:00: mouth 2 00 (two) Medical times Branch daily. metroNIDAZO 2020- Yes [id number] 500mg Take 1 Univers LE 500 mg 1-07 tablet by ity o f tablet 00:00: mouth 2 [place] 00 (two) Medical times Branch daily. metroNIDAZO 2020-0 Yes [id number] 500mg Take 1 Univers LE 500 mg 1-07 tablet by ity o f tablet 00:00: mouth 2 00 (two) Medical times Branch daily. metroNIDAZO 2020-0 Yes [id number] 500mg Take 1 Univers LE 500 mg 1-07 tablet by ity o f tablet 00:00: mouth 2 [place] 00 (two) Medical times Branch daily. metroNIDAZO 2020-0 Yes [id number] 500mg Take 1 Univers LE 500 mg 1-07 tablet by ity o f tablet 00:00: mouth 2 [place] 00 (two) Medical times Branch daily. metroNIDAZO Yes [id number] 500mg Take 1 Univers LE 500 mg 1-07 tablet by ity o f tablet 00:00: mouth 2 (two) Medical times Branch daily. metroNIDAZO Yes [id number] 500mg Take 1 Univers LE 500 mg 1-07 tablet by ity o f tablet 00:00: mouth 2 (two) Medical times Branch daily. metroNIDAZO Yes [id number] 500mg Take 1 Univers LE 500 mg 1-07 tablet by ity o f tablet 00:00: mouth 2 (two) Medical times Branch daily. Nitrofurant 2020- Yes [id number] 100mg Take 1 Univers oin&Nit. 0-12 capsule by ity o f [place] (MACROBID[place] 00 (two) Medical 100 mg times Branch capsule daily. Nitrofurant 2019- Yes [id number] 100mg Take 1 Univers oin&Nit. 0-12 capsule by ity o f [place] mouth [place] (MACROBID) 00 (two) Medical 100 mg times Branch capsule daily. Nitrofurant 2020- Yes [id number] 100mg Take 1 Univers oin&Nit. 0-12 capsule by ity o f [place]: mouth 2 [place] (MACROBID) 00 (two) Medical 100 mg times Branch capsule daily. Nitrofurant 2020- Yes [id number] 100mg Take 1 Univers oin&Nit. 0-12 capsule by ity o f [place]: mouth 2 [place] (MACROBID) 00 (two) Medical 100 mg times Branch capsule daily. Nitrofurant 2020- Yes [id number] 100mg Take 1 Univers oin&Nit. 0-12 capsule by ity o f [place]: mouth 2 [place] (MACROBID) 00 (two) Medical 100 mg times Branch capsule daily. Nitrofurant 2020- Yes [id number] 100mg Take 1 Univers oin&Nit. 0-12 capsule by ity o f [place]: mouth [place] (MACROBID) 00 (two) Medical 100 mg times Branch capsule daily. Nitrofurant 2020- Yes [id number] 100mg Take 1 Univers oin&Nit. 0-12 capsule by ity o f [place]: mouth 2 [place] (MACROBID) 00 (two) Medical 100 mg times Branch capsule daily. Nitrofurant 2019- Yes [id number] 100mg Take 1 Univers oin&Nit. 0-12 capsule by ity o f [place]: mouth 2 [place] (MACROBID) 00 (two) Medical 100 mg times Branch capsule daily. Nitrofurant 2019-10 Yes [id number] 100mg Take 1 Univers oin&Nit. 0-12 capsule by ity o f [place]: mouth 2 [place] (MACROBID) 00 (two) Medical 100 mg times Branch capsule daily. Nitrofurant 2019-10 Yes [id number] 100mg Take 1 Univers oin&Nit. 0-12 capsule by ity o f [place] 00:[place]: mouth 2 [place] (MACROBID) 00 (two) Medical 100 mg times Branch capsule daily. Nitrofurant 2019-10 Yes [id number] 100mg Take 1 Univers oin&Nit. 0-12 capsule by ity o f [place] 00:[place]: mouth 2 [place] (MACROBID) 00 (two) Medical 100 mg times Branch capsule daily. Nitrofurant 2019-10 Yes [id number] 100mg Take 1 Univers oin&Nit. 0-12 capsule by ity o f [place] 00:[place]: mouth 2 [place] (MACROBID) 00 (two) Medical 100 mg times Branch capsule daily. Nitrofurant 2019- Yes [id number] 100mg Take 1 Univers oin&Nit. 0-12 capsule by ity o f [place] 00:[place]: mouth 2 [place] (MACROBID) 00 (two) Medical 100 mg times Branch capsule daily. Nitrofurant 2019- Yes [id number] 100mg Take 1 Univers oin&Nit. 0-12 capsule by ity o f [place] 00:[place]: mouth 2 [place] (MACROBID) 00 (two) Medical 100 mg times Branch capsule daily. Nitrofurant 2019- Yes [id number] 100mg Take 1 Univers oin&Nit. 0-12 capsule by ity o f [place] 00:[place]: mouth 2 [place] (MACROBID) 00 (two) Medical 100 mg times Branch capsule daily. Nitrofurant 2020- Yes [id number] 100mg Take 1 Univers oin&Nit. 0-12 capsule by ity o f [place] 00:[place]: mouth 2 [place] (MACROBID) 00 (two) Medical 100 mg times Branch capsule daily. IRON, 0 2020- No Take by Univers FERROUS 3-24 -24 mouth. ity of SULFATE, 14:10: 00:00 [place] ORAL 10 :00 Medical Branch IRON, 2019-0 2020- No Take by Univers FERROUS 3-24 -24 mouth. ity of SULFATE, 14:10: 00:00 [place] ORAL 10 :00 Medical Branch IRON, 2019-0 2020- No Take by Univers FERROUS 3-24 -24 mouth. ity of SULFATE, 14:10: 00:00 [place] ORAL 10 :00 Medical Branch metroNIDAZO 2019-0 Yes [id number] 500mg Take 1 Univers LE 500 mg 2-12 tablet by ity o f tablet 00:00: mouth 2 (two) Medical times Branch daily. clotrimazol 2019-0 Yes [id number] 1{appli Insert 1 Univers e 1 % 2-12 cator} Applicator ity of vaginal 00:00: into [place] cream 00 vagina at Medical bedtime. Branch metroNIDAZO 2019-0 Yes [id number] 500mg Take 1 Univers LE 500 mg 2-12 tablet by ity o f tablet 00:00: mouth 2 (two) Medical times Branch daily. clotrimazol 2020-0 Yes [id number] 1{appli Insert 1 Univers e 1 % 2-12 cator} Applicator ity of vaginal 00:00: into [place] cream 00 vagina at Medical bedtime. Branch metroNIDAZO 2020-0 Yes [id number] 500mg Take 1 Univers LE 500 mg 2-12 tablet by ity o f tablet 00:00: mouth 2 (two) Medical times Branch daily. clotrimazol 2020-0 Yes [id number] 1{appli Insert 1 Univers e 1 % 2-12 cator} Applicator ity of vaginal 00:00: into [place] cream 00 vagina at Medical bedtime. Branch metroNIDAZO 2020-0 2020- No [id number] 500mg Take 1 Univers LE 500 mg 2-12 03-24 tablet by ity of tablet 00:00: 00:00 mouth 2 [place] 00 :00 (two) Medical times [place] daily. clotrimazol 2019- No [id number] 1{appli Insert 1 Univers e 1 % 12-05 cator} Applicator ity o f vaginal 00:00: 00:00 into [place] cream 00 :00 vagina at Medical bedtime. Branch metroNIDAZO 2019- No [id number] 500mg Take 1 Univers LE 500 mg 12-0524 tablet by ity of tablet 00:00: 00:00 mouth 2 [place] 00 :00 (two) Medical times [place] daily. clotrimazol 2020- No [id number] 1{appli Insert 1 Univers e 1 % 12-05 cator} Applicator ity o f vaginal 00:00: 00:00 into [place] cream 00 :00 vagina at Medical bedtime. Branch metroNIDAZO 2019- No [id number] 500mg Take 1 Univers LE 500 mg 12-05 tablet by ity of tablet 00:00: 00:00 mouth 2 [place] 00 :00 (two) Medical times [place] daily. clotrimazol 2019- No [id number] 1{appli Insert 1 Univers e 1 % 12-05 cator} Applicator ity o f vaginal 00:00: 00:00 into [place] cream 00 :00 vagina at Medical bedtime. Branch IRON, Yes Take by Univers FERROUS 3-05 mouth. ity of SULFATE, 20:45: [address] IRON, Yes Take by Univers FERROUS 3-05 mouth. ity of SULFATE, 20:45: [address] IRON, Yes Take by Univers FERROUS 3-05 mouth. ity of SULFATE, 20:45: [address] IRON, Yes Take by Univers FERROUS 3-05 mouth. ity of SULFATE, 20:45: [address] No known No Univers medications ity [facility] No known No Univers medications ity of [facility] No known No Univers medications ity of [facility] Immunizations Ordered Filled Immunization Date Status Comments [facility] e Immunization Name Name Influenza Virus 2020-08-04 Completed Universit y of Vaccine [place] .5 mL 00:00:00 [place] Medical IM 6+ MO Branch Influenza Virus 2020-08-04 Completed Universit y of Vaccine [place] .5 mL 00:00:00 [place] [facility] IM 6+ MO Branch Influenza Virus 2020-08-04 Completed Universit y of Vaccine [place] .5 mL 00:00:00 [place] Medical IM 6+ MO Branch Influenza Virus 2020-08-04 Completed Universit y of Vaccine [place] .5 mL 00:00:00 [place] Medical IM 6+ MO Branch Influenza Virus 2020-08-04 Completed Universit y of Vaccine [place] .5 mL 00:00:00 [place] Medical IM 6+ MO Branch Influenza Virus 2020-08-04 Completed Universit y of Vaccine [place] .5 mL 00:00:00 [place] Medical IM 6+ MO Branch Influenza Virus 2020-08-04 Completed Universit y of Vaccine [place] .5 mL 00:00:00 [place] [facility] IM 6+ MO Branch Influenza Virus 2020-08-04 Completed Universit y of Vaccine [place] .5 mL 00:00:00 [place] [facility] IM 6+ MO Branch Influenza Virus 2020-08-04 Completed Universit y of Vaccine [place] .5 mL 00:00:00 [place] [facility] IM 6+ MO Branch Influenza Virus 2020-08-04 Completed Universit y of Vaccine [place] .5 mL 00:00:00 [place] [facility] IM 6+ MO Branch Influenza Virus 2020-08-04 Completed Universit y of Vaccine [place] .5 mL 00:00:00 [place] [facility] IM 6+ MO Branch Influenza Virus 2020-08-04 Completed Universit y of Vaccine [place] .5 mL 00:00:00 [place] [facility] IM 6+ MO Branch Influenza Virus 2020-08-04 Completed Universit y of Vaccine [place] .5 mL 00:00:00 [place] [facility] IM 6+ MO Branch Influenza Virus 2020-08-04 Completed Universit y of Vacc[place] .5 mL 00:00:00 [place] [facility] IM 6+ MO Branch Influenza Virus 2020-08-04 Completed Universit y of Vacc[place] .5 mL 00:00:00 [place] Medical IM 6+ MO Branch Influenza Virus 2020-08-04 Completed Universit y of Vaccine [place] .5 mL 00:00:00 [place] Medical 6+ MO Branch TDAP (ADACEL) 2014-12-20 Completed University of VACCINE 00:00:00 [facility] TDAP (ADACEL) 2014-12-20 Completed University of VACCINE 00:00:00 [place] [facility] TDAP (ADACEL) 2014-12-20 Completed University of VACCINE 00:00:00 [place] [facility] TDAP (ADACEL) 2014-12-20 Completed University of VACCINE 00:00:00 [place] [facility] TDAP (ADACEL) 2014-12-20 Completed University of VACCINE 00:00:00 [place] [facility] TDAP (ADACEL) 2014-12-20 Completed University of VACCINE 00:00:00 [place] [facility] TDAP (ADACEL) 2014-12-20 Completed University of VACCINE 00:00:00 [place] [facility] TDAP (ADACEL) 2014-12-20 Completed University of VACCINE 00:00:00 [facility] Branch TDAP (ADACEL) 2014-12-20 Completed University of VACCINE 00:00:00 [facility] Branch TDAP (ADACEL) 2014-12-20 Completed University of VACCINE 00:00:00 [facility] Branch TDAP (ADACEL) 2014-12-20 Completed University of VACCINE 00:00:00 [facility] Branch TDAP (ADACEL) 2014-12-20 Completed University of VACCINE 00:00:00 [facility] Branch TDAP (ADACEL) 2014-12-20 Completed University of VACCINE 00:00:00 [facility] Branch TDAP (ADACEL) 2014-12-20 Completed University of VACCINE 00:00:00 [facility] Branch TDAP (ADACEL) 2014-12-20 Completed University of VACCINE 00:00:00 [facility] Branch TDAP (ADACEL) 2014-12-20 Completed University of VACCINE 00:00:00 [facility] Branch TDAP (ADACEL) 2014-12-20 Completed University of VACCINE 00:00:00 [facility] Branch TDAP (ADACEL) 2014-12-20 Completed University of VACCINE 00:00:00 [facility] Branch TDAP (ADACEL) 2014-12-20 Completed University of VACCINE 00:00:00 [facility] Branch TDAP (ADACEL) 2014-12-20 Completed University of VACCINE 00:00:00 [facility] Branch TDAP (ADACEL) 2014-12-20 Completed University of VACCINE 00:00:00 [place] [facility] TDAP (ADACEL) 2014-12-20 Completed University of VACCINE 00:00:00 [facility] Branch TDAP (ADACEL) 2014-12-20 Completed University of VACCINE 00:00:00 [facility] Branch TDAP (ADACEL) 2014-12-20 Completed University of VACCINE 00:00:00 [facility] TDAP (ADACEL) 2014-12-20 Completed University of VACCINE 00:00:00 [facility] TDAP (ADACEL) 2014-12-20 Completed University of VACCINE 00:00:00 [facility] Vital Signs Vital Name Observation Time Observation Value Comments Source Systolic blood 2020-11-03 22:24:00 123 mm[Hg] Univer sity of pressure [facility] Branch Diastolic blood 2020-11-03 22:24:00 78 mm[Hg] Unive rsity of pressure [facility] Heart rate 2020-11-03 22:24:00 67 /min Universi ty of [facility] Body temperature 2020-11-03 22:24:00 36.89 [place] Univ ersity of [facility] Branch Respiratory rate 2020-11-03 22:24:00 16 /min Univ ersity of [facility] Branch Body height 2020-11-03 22:24:00 152.4 cm Universi ty of [facility] Body weight 2020-11-03 22:24:00 78.983 kg Universi ty of [place] [facility] BMI 2020-11-03 22:24:00 34.01 kg/m2 Universi ty of [place] [facility] Systolic blood 2020-10-30 16:25:00 116 mm[Hg] Univer sity of pressure [facility] Branch Diastolic blood 2020-10-30 16:25:00 75 mm[Hg] Unive rsity of pressure [facility] Branch Heart rate 2020-10-30 16:25:00 77 /min Universi ty of [place] [facility] Body temperature 2020-10-30 16:25:00 36.39 [place] Univ ersity of [facility] Branch Respiratory rate 2020-10-30 16:25:00 16 /min Univ ersity of [facility] Branch Body height 2020-10-30 16:25:00 152.4 cm Universi ty of [place] [facility] Body weight 2020-10-30 16:25:00 80.032 kg Universi ty of [place] [facility] BMI 2020-10-30 16:25:00 34.46 kg/m2 Universi ty of [place] [facility] Systolic blood 2020-08-04 20:25:00 111 mm[Hg] Univer sity of pressure [facility] Branch Diastolic blood 2020-08-04 20:25:00 72 mm[Hg] Unive rsity of pressure [place] [facility] Heart rate 2020-08-04 20:25:00 73 /min Universi ty of [place] [facility] Body temperature 2020-08-04 20:25:00 37.11 [place] Univ ersity of [place] [facility] Respiratory rate 2020-08-04 20:25:00 16 /min Univ ersity of [place] [facility] Body height 2020-08-04 20:25:00 152.4 cm Universi ty of [place] [facility] Body weight 2020-08-04 20:25:00 79.521 kg Universi ty of [place] [facility] BMI 2020-08-04 20:25:00 34.24 kg/m2 Universi ty of [place] [facility] Systolic blood 2020-08-04 20:25:00 111 mm[Hg] Univer sity of pressure [place] [facility] Diastolic blood 2020-08-04 20:25:00 72 mm[Hg] Unive rsity of pressure [place] [facility] Heart rate 2020-08-04 20:25:00 73 /min Universi ty of [place] [facility] Body temperature 2020-08-04 20:25:00 37.11 [place] Univ ersity of [place] [facility] Respiratory rate 2020-08-04 20:25:00 16 /min Univ ersity of [place] [facility] Body height 2020-08-04 20:25:00 152.4 cm Universi ty of [place] [facility] Body weight 2020-08-04 20:25:00 79.521 kg Universi ty of [place] [facility] BMI 2020-08-04 20:25:00 34.24 kg/m2 Universi ty of [place] [facility] Systolic blood 2019-12-05 20:34:00 107 mm[Hg] Univer sity of pressure [place] [facility] Diastolic blood 2019-12-05 20:34:00 74 mm[Hg] Unive rsity of pressure [place] [facility] Heart rate 2019-12-05 20:34:00 105 /min Universi ty of [place] [facility] Body temperature 2019-12-05 20:34:00 37.17 [place] Univ ersity of [place] [facility] Respiratory rate 2019-12-05 20:34:00 16 /min Univ ersity of [place] [facility] Body height 2019-12-05 20:34:00 152.4 cm Universi ty of [place] [facility] Body weight 2019-12-05 20:34:00 78.472 kg Universi ty of [place] [facility] BMI 2019-12-05 20:34:00 33.79 kg/m2 Universi ty [facility] Procedures Procedure Date / Time Performed Performing Clinician Sourc e POCT URINALYSIS W/O 2020-10-30 16:29:00 Ally Wilkinson [facility] SPECIFIC GRAVITY [facility] POCT TEST 2020-08-04 21:16:00 Ally Wilkinson Uni [facility] URINE CULTURE 2020-08-04 21:15:00 Ally Wilkinson [facility] GC & CHLAMYDIA 2020-08-04 21:15:00 Ally Wilkinson [facility] AMPLIFIED ASSAY [facility] POCT URINALYSIS 2020-08-04 21:15:00 Ally Wilkinson [facility] HIV 1/2 AG-AB WITH 2020-08-04 21:10:00 Ally Wilkinson [facility] FLU VACC ([id number]), 2020-08-04 20:39:40 [facility], IM, QUAD Medical Bran ch ASSIGNMENT OF BENEFITS 2020-08-04 20:02:22 Doctor Unassigned, No [facility] ASSIGNMENT OF BENEFITS 2019-12-05 19:54:25 Doctor Unassigned, No [facility] Encounters Start End Encounter Admission Attending Care Care Encounter Source Date/Time Date/Time Type Type Clinicians Facility Department ID 2021-01-08 2021-01-08 Patient Randall INNYASIA [id number] Univers 00:00:00 00:00:00 Outreach Nathaniel PRIMARY [id number] i ty of [facility] [id number] Bernard PIPER [id number] [facility] 2020-11-03 2020-11-03 Nurse Visit, MarshallRmrudy Nurse [facility] [id number] Univers 16:19:37 16:27:45 Visit Marlee Robin [employer]SIDE [employer] SALESMAN [id number] ity [facility] [id number] [place] as MATERNAL [id number] Med ical & CHILD [address] [place] [address] 2020-11-03 2020-11-03 Outpatient R [facility] [id number] Univers 16:00:00 16:00:00 [id number] ity of [facility] 2020-11-03 2020-11-03 Outpatient R SEAN [facility] [id number] Univers 16:00:00 16:00:00 AMANDA ity o f [facility] 2020-11-03 2020-11-03 Telephone [facility] [id number] Univers 00:00:00 00:00:00 Ally C [employer] [id number] ity of [facility] [id number] [place] as MATERNAL [phone] [facility] & CHILD [address] [place] [address] 2020-10-30 2020-10-30 Office [facility] [id number] Univers 10:16:44 11:03:32 Visit Ally Colby [employer] [id number] ity of [facility] [id number] [place] as MATERNAL [id number] [facility] & CHILD [address] [place] [address] 2020-10-30 2020-10-30 [facility] [id number] Univers 10:30:00 10:30:00 ALLY [id number] ity o [facility] 2020-10-30 2020-10-30 [facility] [id number] Univers 10:30:00 10:30:00 ALLY ity o f [facility] 2020-10-29 2020-10-29 Telephone [facility] [id number] Univers 00:00:00 00:00:00 Ally C [employer] [id number] ity of [facility] [id number] [place] as MATERNAL [id number] [facility] & CHILD [address] [place] [address] 2020-09-29 2020-09-29 [facility] [id number] Univers 06:24:55 23:59:00 Encounter Ally C SPECIALTY [id number] ity of C[place] [id number] [place] [id number] Wi ty Ramos5 [facility] 2020-09-29 2020-09-29 Outpatient R AKINSIPE, [facility] [id number] Univers 09:30:00 09:30:00 ALLY ity o [facility] 2020-09-29 2020-09-29 Outpatient R AKINSIPE, [facility] [id number] Univers 00:00:00 00:00:00 ALLY ity o [facility] 2020-08-18 2020-08-18 Outpatient R AKINSIPE, [facility] [id number] Univers 14:15:00 14:15:00 ALLY [id number] jorgey o [facility] 2020-08-18 2020-08-18 Outpatient R AKINSIPE, [facility] [id number] Univers 14:15:00 14:15:00 ALLY pately o [facility] 2020-08-12 2020-08-12 Telephone Akinsipe, [facility] [id number] Univers 00:00:00 00:00:00 Ally C [employer] [id number] ity of REGIONAL [id number] Silviano as MATERNAL [phone] Med ical & CHILD [address] [place] [address] 2020-08-12 2020-08-12 [facility] [id number] 00:00:00 00:00:00 Ally C [employer] [id number] REGIONAL [id number] MATERNAL [phone] & CHILD [address] [place] [address] 2020-08-07 2020-08-07 [facility] [id number] Univers 00:00:00 00:00:00 Ally C [employer] [id number] ity of REGIONAL [id number] Silviano as MATERNAL [phone] Med ical & CHILD [address] [place] [address] 2020-08-04 2020-08-04 Office Akinsipe, [facility] [id number] Univers 15:09:17 16:29:28 Visit Ally Colby [employer] [id number] ity of [facility] [id number] Silviano as MATERNAL [phone] Med ical & CHILD [address] [place] [address] 2020-08-04 2020-08-04 Office Pavansipe, [facility] [id number] 15:09:17 16:29:28 Visit Ally Colby [employer] [id number] [facility] [id number] MATERNAL [phone] & CHILD [address] [place] [address] 2020-08-04 2020-08-04 Outpatient R AKINSIPE, [facility] [id number] Univers 15:30:00 15:30:00 ALLY eklins [facility] 2020-08-04 2020-08-[address] [facility] [id number] Univers 15:00:00 15:00:00 [id number] ity [facility] 2020-08-04 2020-08-04 Outpatient R AKINSIPE, [facility] [id number] Univers 15:00:00 15:00:00 ALLY mancini [facility] 2020-08-04 2020-08-04 Orders Doctor ANGELO [id number] Univers 00:00:00 00:00:00 Only Unassigned, VLADIMIR [id number] ity of [place] [facility] [id number] Silviano as [phone] [address] 2020-07-31 2020-07-31 Outpatient R AKINSIPE, [facility] [id number] Univers 09:00:00 09:00:00 ALLY live o [facility] 2020-07-31 2020-07-31 Outpatient R AKINSIPE, [facility] [id number] Univers 09:00:00 09:00:00 ALLY mancini o [facility] 2020-04-08 2020-04-08 Outpatient R ROBIN, [facility] [id number] Univers 14:45:00 14:45:00 MARLEE [id number] live o yoana [facility] 2020-04-08 2020-04-08 Outpatient R SEAN [facility] [id number] Univers 14:45:00 14:45:00 MARLEE mancini o yoana [facility] 2020-02-04 2020-02-04 [facility] [id number] Univers 00:00:00 00:00:00 Marlee R [employer] [id number] ity of [facility] [id number] Silviano as MATERNAL [phone] Med ical & CHILD [address] [place] [address] 2020-02-04 2020-02-04 Patient Doctor [facility] [id number] Univers 00:00:00 00:00:00 Secure Msg Unassigned, [employer] [id number] ity of [place] [facility] [id number] Silviano as MATERNAL [phone] Med ical & CHILD [address] [place] [address] 2020-01-15 2020-01-15 [facility]ici [facility] [id number] Univers 08:25:29 13:29:19 ne Visit Marlee Julissa [employer] [id number] ity of [facility] [id number] Silviano as MATERNAL [phone] Med ical & CHILD [address] [place] [address] 2020-01-15 2020-01-15 [id number] Univers 08:30:00 08:30:00 MARLEE lees [facility] 2019-12-05 2019-12-05 Office [facility] [id number] Univers 13:48:56 15:28:07 Visit Ally Colby [employer] [id number] ity of [facility] [id number] Silviano as MATERNAL [phone] Med ical & CHILD [address] [place] [address] 2019-12-05 2019-12-05 Orders Doctor ANGELO [id number] Univers 00:00:00 00:00:00 Only Unassigned, VLADIMIR [id number] ity of [place] [facility] [id number] Silviano as [phone] [address] Results Test Description Test Time Test Comments Results Result Comments Source POCT URINALYSIS W/O SPECIFIC GRAVITY 2020-10-30 16:29:00 Test Item Value Reference Range Interpretation Comme nts POCT PH U (test code = 3254) 6 mg/dl 5-8 POCT U LEUK EST (test code = 3263) 1+ Negative - Negative POCT U NIT (test code = 3262) Neg Negative - Negative POCT U PROT (test code = 3259) Trace Negative - Negative POCT U GLU (test code = 3256) Neg Negative - Negative POCT U KETONE (test code = 3258) None Negative - Negative POCT U BLD (test code = 3257) Negative - Negative [facility] URINALYSIS W/O SPECIFIC [id number] 16:29:00 Test Item Value Reference Range Interpretation Comments POCT PH U (test code = 3254) 6 mg/dl 5-8 POCT U LEUK EST (test code = 1+ Negative - Negative 3263) POCT U NIT (test code = 3262) Neg Negative - Negative POCT U PROT (test code = 3259) Trace Negative - Negative POCT U GLU (test code = 3256) Neg Negative - Negative POCT U KETONE (test code = 3258) None Negative - Negative POCT U BLD (test code = 3257) Negative - Negative [facility]CIFIC [id number] 16:29:00 Test Item Value Reference Range Interpretation Comments POCT PH U (test code = 3254) 6 mg/dl 5-8 POCT U LEUK EST (test code = 1+ Negative - Negative 3263) POCT U NIT (test code = 3262) Neg Negative - Negative POCT U PROT (test code = 3259) Trace Negative - Negative POCT U GLU (test code = 3256) Neg Negative - Negative POCT U KETONE (test code = 3258) None Negative - Negative POCT U BLD (test code = 3257) Negative - Negative [facility]CIFIC [id number] 16:29:00 Test Item Value Reference Range Interpretation Comments POCT PH U (test code = 3254) 6 mg/dl 5-8 POCT U LEUK EST (test code = 1+ Negative - Negative 3263) POCT U NIT (test code = 3262) Neg Negative - Negative POCT U PROT (test code = 3259) Trace Negative - Negative POCT U GLU (test code = 3256) Neg Negative - Negative POCT U KETONE (test code = 3258) None Negative - Negative POCT U BLD (test code = 3257) Negative - Negative [facility] [id number] 16:29:00 Test Item Value Reference Range Interpretation Comments POCT PH U (test code = 3254) 6 mg/dl 5-8 POCT U LEUK EST (test code = 1+ Negative - Negative 3263) POCT U NIT (test code = 3262) Neg Negative - Negative POCT U PROT (test code = 3259) Trace Negative - Negative POCT U GLU (test code = 3256) Neg Negative - Negative POCT U KETONE (test code = 3258) None Negative - Negative POCT U BLD (test code = 3257) Negative - Negative [facility] CHLAMYDIA AMPLIFIED [id number] 17:09:00 Test Item Value Reference Range Interpretation Comments C. trachomatis Nucleic Negative Negative Acid (test code = 11644-0) N. gonorrhoeae Nucleic Negative Negative Acid (test code = 82193-4) NAEL (test code = NAEL) Reliable results are dependent on adequate specimen collection. ? A positive result obtained from a patient after therapeutic treatment cannot be interpreted as indicating the presence of viable organisms. ?For patients on whom a false positive result may have adverse psychosocial impact, retesting is advised. Indeterminate: Unable to generate a valid test result on this specimen. ?Please submit a new specimen for repeat testing if clinically indicated. Chlamydia trachomatis/Neisseria gonorrhoeae nucleic acid amplification testing (NAAT) has not been validated for medico-legal specimens (sexual abuse in audie-pubertal and pre-pubertal children, sexual assault, and legal cases). ?Culture for Chlamydia trachomatis and/or Neisseria gonorrhoeae from clinically appropriate sites is the method of choice in these cases. ? Results from this testing should be interpreted in conjunction with other laboratory and clinical data available to the clinician.For females in general, a urine specimen is a second-line option because it is considered less sensitive than a cervical swab for Chlamydia trachomatis and/or Neisseria gonorrhoeae NAAT. Lab Interpretation Normal (test code = 87127-3) [facility] CHLAMYDIA AMPLIFIED [id number] 17:09:00 Test Item Value Reference Range Interpretation Comments C. trachomatis Nucleic Negative Negative Acid (test code = 96398-4) N. gonorrhoeae Nucleic Negative Negative Acid (test code = 68253-2) NAEL (test code = NAEL) Reliable results are dependent on adequate specimen collection. ? A positive result obtained from a patient after therapeutic treatment cannot be interpreted as indicating the presence of viable organisms. ?For patients on whom a false positive result may have adverse psychosocial impact, retesting is advised. Indeterminate: Unable to generate a valid test result on this specimen. ?Please submit a new specimen for repeat testing if clinically indicated. Chlamydia trachomatis/Neisseria gonorrhoeae nucleic acid amplification testing (NAAT) has not been validated for medico-legal specimens (sexual abuse in audie-pubertal and pre-pubertal children, sexual assault, and legal cases). ?Culture for Chlamydia trachomatis and/or Neisseria gonorrhoeae from clinically appropriate sites is the method of choice in these cases. ? Results from this testing should be interpreted in conjunction with other laboratory and clinical data available to the clinician.For females in general, a urine specimen is a second-line option because it is considered less sensitive than a cervical swab for Chlamydia trachomatis and/or Neisseria gonorrhoeae NAAT. Lab Interpretation Normal (test code = 98578-6) [facility]-AB WITH [id number] 04:27:00 Test Item Value Reference Range Interpretation Comments HIV Negative Negative Semi-quantitative (test code = 68063-7) NAEL (test code = Non-reactive for HIV-1 NAEL) antigen and HIV-1/HIV-2 antibodies. ?No laboratory evidence of HIV infection. ?Repeat in 2-4 weeks if acute HIV infection is suspected. [facility] WITH [id number] 04:27:00 Test Item Value Reference Range Interpretation Comments HIV Negative Negative Semi-quantitative (test code = 81458-7) NAEL (test code = Non-reactive for HIV-1 NAEL) antigen and HIV-1/HIV-2 antibodies. ?No laboratory evidence of HIV infection. ?Repeat in 2-4 weeks if acute HIV infection is suspected. [facility] [id number] 21:16:00 Test Item Value Reference Range Interpretation Comments POCT PREG (test code = 1605) Negative On board controls acceptable with C Yes Line (test code = 3574) POCT PREG LOT # (test code = 3575) POCT PREG TEST DATE (test code = 3576) [facility] [id number] 21:16:00 Test Item Value Reference Range Interpretation Comments POCT PREG (test code = 1605) Negative On board controls acceptable with C Yes Line (test code = 3574) POCT PREG LOT # (test code = 3575) POCT PREG TEST DATE (test code = 3576) [facility] URINALYSIS W SPECIFIC [id number] 21:15:00 Test Item Value Reference Range Interpretation Comments POCT U SP GRAV (test code = . 1.005-1.025 3255) POCT PH U (test code = 3254) 6 mg/dl 5-8 POCT U LEUK EST (test code = 1+ Negative - Negative 3263) POCT U NIT (test code = 3262) POsitive Negative - Negative POCT U PROT (test code = 3259) Trace Negative - Negative POCT U GLU (test code = 3256) Neg Negative - Negative POCT U KETONE (test code = 3258) None Negative - Negative POCT U UROBILI (test code = . 0.2-1 3260) POCT U BILI (test code = 3261) . Negative - Negative POCT U BLD (test code = 3257) Trace Negative - Negative POCT U COLOR (test code = 3266) POCT U APPEAR (test code = 3267) [facility] URINALYSIS W SPECIFIC [id number] 21:15:00 Test Item Value Reference Range Interpretation Comments POCT U SP GRAV (test code = . 1.005-1.025 3255) POCT PH U (test code = 3254) 6 mg/dl 5-8 POCT U LEUK EST (test code = 1+ Negative - Negative 3263) POCT U NIT (test code = 3262) POsitive Negative - Negative POCT U PROT (test code = 3259) Trace Negative - Negative POCT U GLU (test code = 3256) Neg Negative - Negative POCT U KETONE (test code = 3258) None Negative - Negative POCT U UROBILI (test code = . 0.2-1 3260) POCT U BILI (test code = 3261) . Negative - Negative POCT U BLD (test code = 3257) Trace Negative - Negative POCT U COLOR (test code = 3266) POCT U APPEAR (test code = 3267) [facility]
--- NOTE | 2021-11-23 14:58 | RAD REPORT ---
EXAM DESCRIPTION: RAD - Chest Pa And Lat (2 Views) - 11/23/2021 2:44 pm CLINICAL HISTORY: DYSPNEA COMPARISON: Chest Pa And Lat (2 Views) dated 10/20/2016 FINDINGS: Lines: None. Lungs: No evidence of edema or pneumonia. Pleural: No significant pleural effusions or pneumothorax. Cardiac: The heart size is within normal limits. Bones: No acute fractures. Other: IMPRESSION: No acute cardiopulmonary disease.
--- NOTE | 2021-11-23 15:10 | EDPHYS ---
Physician Documentation [facility] Name: Salma Reid Age: 45 yrs Sex: Female : 1975 Arrival Date: 11/23/2021 Time: 11:29 Bed 9 Private MD: ED Physician Feng Gomez HPI: 11/23 15:13 This 45 yrs old Female presents to ER via Ambulatory with complaints of covid kb symptoms worsening. 15:13 The patient or guardian reports difficulty breathing. Onset: The symptoms/episode kb began/occurred 3 day(s) ago. Severity of symptoms: At their worst the symptoms were moderate, in the emergency department the symptoms are unchanged. Modifying factors: The symptoms are alleviated by nothing, the symptoms are aggravated by nothing. Associated signs and symptoms: The patient has no apparent associated signs or symptoms. The patient has not experienced similar symptoms in the past. The patient has not recently seen a physician. Pt reports she was diagnosed with covid on and has had shortness of breath since Tuesday so she came to get checked out. Historical: - Allergies: 12:50 Clindamycin; [facility] 12:50 PENICILLINS; [facility] - Home Meds: 12:50 Iron CR Oral [Active]; aspirin 81 mg Oral chew [Active]; [facility] - PMHx: 12:50 Rheumatoid Arthritis; Kidney stones; fatty liver; [facility] - Immunization history:: Client reports having NOT received the Covid vaccine. - Social history:: Smoking status: Patient denies any tobacco usage or history of. ROS: 15:11 Constitutional: Negative for fever, chills, and weight loss. kb 15:11 Respiratory: Positive for shortness of breath, Negative for cough, dyspnea on exertion, hemoptysis, orthopnea, pleurisy, sputum production, wheezing. 15:11 All other systems are negative. Exam: 15:11 Constitutional: This is a well developed, well nourished patient who is awake, alert, kb and in no acute distress. Head/Face: Normocephalic, atraumatic. ENT: Moist Mucous membranes Cardiovascular: Regular rate and rhythm with a normal S1 and S2. No gallops, murmurs, or rubs. No pulse deficits. Respiratory: Respirations even and unlabored. No increased work of breathing. Talking in full sentences Skin: Warm, dry with normal turgor. Normal color. MS/ Extremity: Pulses equal, no cyanosis. Neurovascular intact. Full, normal range of motion. Neuro: Awake and alert, GCS 15, oriented to person, place, time, and situation. Moves all extremities. Normal gait. Psych: Awake, alert, with orientation to person, place and time. Behavior, mood, and affect are within normal limits. Vital Signs: 12:48 BP 114 / 66; Pulse 88; Resp 20; Temp 98.4(O); Pulse Ox 100% on R/A; Weight 80.74 kg; jh6 Height 5 ft. 0 in. (152.40 cm); Pain 4/10; 14:23 BP 125 / 78; Pulse 81; Resp 16; Temp 97.6(O); Pulse Ox 99% on R/A; ld1 12:48 Body Mass Index 34.76 (80.74 kg, 152.40 cm) jh6 MDM: 14:04 Patient medically screened. kb 15:10 Data reviewed: vital signs, nurses notes. Data interpreted: Pulse oximetry: on room air kb is 99 %. Interpretation: normal. Counseling: I had a detailed discussion with the patient and/or guardian regarding: the historical points, exam findings, and any diagnostic results supporting the discharge/admit diagnosis, radiology results, the need for outpatient follow up, a family practitioner, to return to the emergency department if symptoms worsen or persist or if there are any questions or concerns that arise at home. 11/23 12:53 Order name: Chest Pa And Lat (2 Views) XRAY; Complete Time: 15:02 kb Administered Medications: No medications were administered Disposition: 17:48 Co-signature as Attending Physician, Feng Gomez MD I agree with the assessment and rn plan of care. Attestation: The patient's history, exam findings, diagnostics, and a summary of any interventions or procedures was reviewed in detail with Michelle VICTOR. Disposition Summary: 11/23/21 15:10 Discharge Ordered Location: Home kb Condition: Stable kb Diagnosis - Coronavirus infection, unspecified kb Followup: kb - With: Emergency Department - When: As needed - Reason: Worsening of condition Followup: kb - With: Private Physician - When: 2 - 3 days - Reason: Recheck today's complaints, Continuance of care, Re-evaluation by your physician Discharge Instructions: - Discharge Summary Sheet kb - Viral Respiratory Infection, [id number] kb - COVID-19 kb Forms: - Medication Reconciliation Form kb - Thank You Letter kb - Antibiotic Education kb - Prescription Opioid Use kb Signatures: Dispatcher [employer] Michelle Alejandre, GAILC Feng Cordoba MD MD rn HastedtShelli RN RN jh6
--- NOTE | 2021-11-23 15:10 | ER ---
Nurse's Notes [facility] Name: Salma Reid Age: 45 yrs Sex: Female : 1975 Arrival Date: 11/23/2021 Time: 11:29 Bed 9 Private MD: Diagnosis: Coronavirus infection, unspecified Presentation: 11/23 12:48 Chief complaint: Patient states: Dx with COVID x 1wk ago. States not feeling better and jh6 increased sob. Coronavirus screen: Vaccine status: Patient reports being unvaccinated. Client denies travel out of the [place] in the last 14 days. Ebola Screen: Patient negative for fever greater than or equal to 101.5 degrees Fahrenheit, and additional compatible Ebola Virus Disease symptoms Patient denies travel to an Ebola-affected area in the 21 days before illness onset. Initial Sepsis Screen: Does the patient meet any 2 criteria? RR > 20 per min. Does the patient have a suspected source of infection? Yes: Productive cough/pneumonia. Risk Assessment: Do you want to hurt yourself or someone else? Patient reports no desire to harm self or others. Onset of symptoms was November 16, 2021. 12:48 Method Of Arrival: Ambulatory [facility] 12:48 Acuity: YESSENIA 3 6 Triage Assessment: 12:51 General: Appears in no apparent distress. Behavior is calm, cooperative, appropriate 6 for age. Pain: Complains of pain in chest Pain currently is 3 out of 10 on a pain scale. Quality of pain is described as pressure. Respiratory: No deficits noted. Reports shortness of breath cough that is productive, pain with cough Airway is patent Trachea midline Respiratory effort is even, unlabored, Respiratory pattern is regular. Historical: - Allergies: 12:50 Clindamycin; [facility] 12:50 PENICILLINS; [facility] - Home Meds: 12:50 Iron CR Oral [Active]; aspirin 81 mg Oral chew [Active]; [facility] - PMHx: 12:50 Rheumatoid Arthritis; Kidney stones; fatty liver; [facility] - Immunization history:: Client reports having NOT received the Covid vaccine. - Social history:: Smoking status: Patient denies any tobacco usage or history of. Screenin:23 Abuse screen: Denies threats or abuse. Denies injuries from another. Nutritional ld1 screening: No deficits noted. Tuberculosis screening: No symptoms or risk factors identified. Fall Risk None identified. Assessment: 14:23 General: Appears in no apparent distress. comfortable, Behavior is calm, cooperative, ld1 appropriate for age. Pain: Denies pain. Neuro: Level of Consciousness is awake, alert, obeys commands, Oriented to person, place, time, situation. Cardiovascular: Capillary refill < 3 seconds Patient's skin is warm and dry. Respiratory: Airway is patent Respiratory effort is even, unlabored, Respiratory pattern is regular, symmetrical. GI: Abdomen is round non-distended. Vital Signs: 12:48 BP 114 / 66; Pulse 88; Resp 20; Temp 98.4(O); Pulse Ox 100% on R/A; Weight 80.74 kg; 6 Height 5 ft. 0 in. (152.40 cm); Pain 4/10; 14:23 BP 125 / 78; Pulse 81; Resp 16; Temp 97.6(O); Pulse Ox 99% on R/A; ld1 12:48 Body Mass Index 34.76 (80.74 kg, 152.40 cm) [facility] ED Course: 11:29 Patient arrived in ED. am2 12:50 Triage completed. 6 12:52 Arm band placed on left wrist. jh6 12:53 Michelle Andujar FNP-C is [facility]. kb 12:53 Feng Gomez MD is Attending Physician. kb 14:22 Emily Tatum, MARILIN is Primary Nurse. ld1 14:23 Patient has correct armband on for positive identification. Placed in gown. Bed in low ld1 position. Call light in reach. Side rails up X2. Pulse ox on. NIBP on. Door closed. Noise minimized. Warm blanket given. 14:23 No provider procedures requiring assistance completed. ld1 14:44 Chest Pa And Lat (2 Views) XRAY In Process Unspecified. EDMS 15:31 Patient did not have IV access during this emergency room visit. ld1 Administered Medications: No medications were administered Outcome: 15:10 Discharge ordered by . kb 15:31 Discharged to home ambulatory. ld1 15:31 Condition: stable 15:31 Discharge instructions given to patient, Instructed on discharge instructions, follow up and referral plans. Demonstrated understanding of instructions, follow-up care. 15:32 Patient left the ED. ld1 Signatures: Dispatcher [employer] EDMS Con, Michelle, TECHNOLOGY TRAINER-C TECHNOLOGY TRAINER-Nelida Ruano am2 Emily Tatum, RN RN ld1 Shelli Hicks RN RN jh6
[2021-11-23 15:46] VITALS: BP 125/78; TEMP 97.6; O2SAT 99
== END 2021-11-23 15:32 | disposition home or self-care (01) ==
LOC: ER 11:28
DX: U07.1 COVID-19 (principal); M06.9 Rheumatoid arthritis, unspecified; K76.0 Fatty (change of) liver, not elsewhere classified; Z88.0 Allergy status to penicillin; Z88.3 Allergy status to other anti-infective agents
CPT/HCPCS: 71046; 99283

== ENCOUNTER 2023-06-20 06:00 | Emergency (ER) | payer SELFPAY ==
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
[2023-06-20] MEDS ORDERED: IBUPROFEN 400 MG TAB ONE (06:39)
--- NOTE | 2023-06-20 08:17 | RAD REPORT ---
EXAM DESCRIPTION: RAD - Chest Pa And Lat (2 Views) - 06/20/2023 6:30 am CLINICAL HISTORY: Cough;Fever COMPARISON: Chest Pa And Lat (2 Views) dated 11/23/2021; Chest Pa And Lat (2 Views) dated 10/20/2016 TECHNIQUE: PA and lateral views of the chest were obtained. FINDINGS: The lungs are clear. Heart size is normal and central vasculature is within normal limits. No pleural effusion or pneumothorax seen. No acute bony finding noted. IMPRESSION: No acute cardiopulmonary process.
--- NOTE | 2023-06-20 09:32 | EDPHYS ---
Physician Documentation [facility] [place] Name: Salma Reid Age: 47 yrs Sex: Female : 1975 Arrival Date: 06/20/2023 Time: 06:00 Bed 4 Private MD: ED Physician Feng Gomez HPI: 06/20 06:18 This 47 yrs old Female presents to ER via Unassigned with complaints of Cough, ms3 Congestion. 06:18 47-year-old female with past medical history of hepatic steatosis, prediabetes, ms3 rheumatoid arthritis presents for fever, cough, runny nose that began on Jose Martin night. Patient states her body aches are rated 9/10. Patient endorses chills, diarrhea, headache. Patient denies sick contacts. Historical: - Allergies: 06:17 Clindamycin; as6 06:17 PENICILLINS; as6 - PMHx: 06:17 fatty liver; Prediabetic; Rheumatoid Arthritis; as6 - PSHx: 06:17 ; tubal ligation; as6 - Immunization history:: Client reports receiving the 2nd dose of the Covid vaccine, [employer]. - Social history:: Smoking status: Patient denies any tobacco usage or history of. - Family history:: not pertinent. ROS: 06:18 Neck: Negative for injury, pain, and swelling, Cardiovascular: Negative for chest pain, ms3 and palpitations. Abdomen/GI: Negative for abdominal pain, nausea, vomiting, diarrhea, and constipation. 06:18 Skin: Negative for injury, rash, and discoloration. 06:18 Constitutional: Positive for body aches, chills, fever. 06:18 Respiratory: Positive for cough. 06:18 All other systems are negative. 08:20 MS/extremity: rn Exam: 06:18 Constitutional: This is a well developed, well nourished patient who is awake, alert, rn and in no acute distress. Head/Face: Normocephalic, atraumatic. Neck: Trachea midline, no cervical lymphadenopathy. Supple, full range of motion without nuchal rigidity, or vertebral point tenderness. No Meningismus. Chest/axilla: Normal chest wall appearance and motion. Nontender with no deformity. Cardiovascular: Regular rate and rhythm with a normal S1 and S2. No gallops, murmurs, or rubs. Normal PMI, no JVD. No pulse deficits. Respiratory: Lungs have equal breath sounds bilaterally, clear to auscultation and percussion. No rales, rhonchi or wheezes noted. No increased work of breathing, no retractions or nasal flaring. Abdomen/GI: Soft, non-tender, with normal bowel sounds. No distension or tympany. No guarding or rebound. No evidence of tenderness throughout. Skin: Warm, dry with normal turgor. Normal color with no rashes, no lesions, and no evidence of cellulitis. MS/ Extremity: Pulses equal, no cyanosis. Neurovascular intact. Full, normal range of motion. Vital Signs: 06:17 BP 135 / 89; Pulse 104; Resp 18 S; Temp 99.7(O); Pulse Ox 97% on R/A; Weight 81.65 kg as6 (R); Height 5 ft. 0 in. (R); Pain 9/10; 07:55 BP 111 / 96; Pulse 99; Resp 18; Pulse Ox 95% on R/A; ph 06:17 Body Mass Index 35.15 (81.65 kg, 152.4 cm) as6 06:17 Pain Scale: Adult as6 MDM: 06:16 Patient medically screened. ms3 06:18 Differential Diagnosis: Obstructed Airway Bronchitis Influenza Upper Respiratory ms3 Infection Pneumonia. 07:06 Transition of care: After a detail discussion of the patient's case, care is ms3 transferred to Feng Gomez MD. 09:31 Data reviewed: vital signs, nurses notes, lab test result(s), radiologic studies, plain rn films, and as a result, I will admit patient. Counseling: I had a detailed discussion with the patient and/or guardian regarding the historical points, exam findings, and any diagnostic results supporting the discharge/admit diagnosis, lab results, radiology results, the need for outpatient follow up, to return to the emergency department if symptoms worsen or persist or if there are any questions or concerns that arise at home. Special discussion: I discussed with the patient/guardian in detail that at this point there is no indication for admission to the hospital. It is understood, however, that if the symptoms persist or worsen the patient needs to return immediately for re-evaluation. Based on the history and exam findings, there is no indication for further emergent testing or inpatient evaluation. I discussed with the patient/guardian the need to see the primary care provider for further evaluation of the symptoms. 06/20 06:15 Order name: COVID-19 SARS RT PCR; Complete Time: 09:27 ms3 06/20 06:15 Order name: Flu; Complete Time: 08:18 ms3 06/20 06:15 Order name: Chest Pa And Lat (2 Views) XRAY; Complete Time: 08:18 ms3 Administered Medications: 06:35 Drug: Ibuprofen PO 600 mg Route: PO; bp 08:49 Follow up: Response: No adverse reaction mb9 Disposition Summary: 06/20/23 09:31 Discharge Ordered Location: Home rn Problem: new rn Symptoms: have improved rn Condition: Stable rn Diagnosis - SARS-associated coronavirus as the cause of diseases classified elsewhere rn Followup: rn - With: Private Physician - When: As needed - Reason: Recheck today's complaints, Re-evaluation by your physician Discharge Instructions: - Discharge Summary Sheet rn - Upper Respiratory Infection, Adult rn - COVID-19 rn - 10 Things You Can Do to Manage Your COVID-19 Symptoms at Home - CDC (05/08/2021) rn - Viral Illness, Adult rn Forms: - Medication Reconciliation Form rn - Thank You Letter rn - Antibiotic internet marketing specialist - Prescription Opioid Use rn - Patient Portal Instructions rn - Leadership Thank You Letter rn Signatures: Dispatcher [employer] EDMS Feng Gomez MD MD rn Peltier, Brian RN RN Vitaly Robert DO DO ms3 Andrew Lance, RN RN as6 Sofia Hunt RN mb9 Corrections: (The following items were deleted from the chart) 08:22 06:18 Constitutional: This is a well developed, well nourished patient who is awake, rn alert, and in no acute distress. Head/Face: Normocephalic, atraumatic. Neck: Trachea midline, no cervical lymphadenopathy. Supple, full range of motion without nuchal rigidity, or vertebral point tenderness. No Meningismus. Chest/axilla: Normal chest wall appearance and motion. Nontender with no deformity. Cardiovascular: Regular rate and rhythm with a normal S1 and S2. No gallops, murmurs, or rubs. Normal PMI, no JVD. No pulse deficits. Respiratory: Lungs have equal breath sounds bilaterally, clear to auscultation and percussion. No rales, rhonchi or wheezes noted. No increased work of breathing, no retractions or nasal flaring. Abdomen/GI: Soft, non-tender, with normal bowel sounds. No distension or tympany. No guarding or rebound. No evidence of tenderness throughout. Skin: Warm, dry with normal turgor. Normal color with no rashes, no lesions, and no evidence of cellulitis. MS/ Extremity: Pulses equal, no cyanosis. Neurovascular intact. Full, normal range of motion. ms3
--- NOTE | 2023-06-20 09:32 | ER ---
Nurse's Notes [facility] Name: Salma Reid Age: 47 yrs Sex: Female : 1975 Arrival Date: 06/20/2023 Time: 06:00 Bed 4 Private MD: Diagnosis: SARS-associated coronavirus as the cause of diseases classified elsewhere Presentation: 06/20 06:17 Chief complaint: Patient states: fever, chills, cough, congestion, ear pain, diarrhea, as6 nausea, body aches that started Tuesday. Coronavirus screen: At this time, the client does not indicate any symptoms associated with coronavirus-19. Ebola Screen: No symptoms or risks identified at this time. Initial Sepsis Screen: Does the patient meet any 2 criteria? No. Patient's initial sepsis screen is negative. Does the patient have a suspected source of infection? No. Patient's initial sepsis screen is negative. Risk Assessment: Do you want to hurt yourself or someone else? Patient reports no desire to harm self or others. Onset of symptoms was June 17, 2023. 06:17 Acuity: YESSENIA 4 as6 06:17 Method Of Arrival: Ambulatory as6 Triage Assessment: 06:17 General: Appears uncomfortable, Behavior is cooperative, appropriate for age, anxious. bp Pain: Complains of pain in head. EENT: Reports nasal congestion. Neuro: No deficits noted. Cardiovascular: No deficits noted. Respiratory: Breath sounds are clear bilaterally. GI: No signs and/or symptoms were reported involving the gastrointestinal system. : No signs and/or symptoms were reported regarding the genitourinary system. Derm: No deficits noted. Musculoskeletal: No deficits noted. Historical: - Allergies: 06:17 Clindamycin; as6 06:17 PENICILLINS; as6 - PMHx: 06:17 fatty liver; Prediabetic; Rheumatoid Arthritis; as6 - PSHx: 06:17 ; tubal ligation; as6 - Immunization history:: Client reports receiving the 2nd dose of the Covid vaccine, pfizer. - Social history:: Smoking status: Patient denies any tobacco usage or history of. - Family history:: not pertinent. Screenin:17 [facility] ED Fall Risk Assessment (Adult) History of falling in the last 3 months, bp including since admission No falls in past 3 months (0 pts). Abuse screen: Denies threats or abuse. Denies injuries from another. Nutritional screening: No deficits noted. Tuberculosis screening: No symptoms or risk factors identified. Assessment: 06:17 General: SEE TRIAGE NOTE. bp 07:55 Reassessment: Patient appears in no apparent distress at this time. Patient and/or ph family updated on plan of care and expected duration. Pain level reassessed. Patient is alert, oriented x 3, equal unlabored respirations, skin warm/dry/pink. 09:43 Reassessment: No changes from previously documented assessment. Patient and/or family mb9 updated on plan of care and expected duration. Pain level reassessed. Patient is alert, oriented x 3, equal unlabored respirations, skin warm/dry/pink. Vital Signs: 06:17 BP 135 / 89; Pulse 104; Resp 18 S; Temp 99.7(O); Pulse Ox 97% on R/A; Weight 81.65 kg as6 (R); Height 5 ft. 0 in. (R); Pain 9/10; 07:55 BP 111 / 96; Pulse 99; Resp 18; Pulse Ox 95% on R/A; ph 06:17 Body Mass Index 35.15 (81.65 kg, 152.4 cm) as6 06:17 Pain Scale: Adult as6 ED Course: 06:03 Patient arrived in ED. ag3 06:08 iVtaly West DO is Attending Physician. ms3 06:17 Patient has correct armband on for positive identification. Bed in low position. Call bp light in reach. Side rails up X2. 06:19 Triage completed. as6 06:19 Kingsley Winston, MARILIN is Primary Nurse. bp 06:19 Arm band placed on. as6 06:31 Chest Pa And Lat (2 Views) XRAY In Process Unspecified. EDMS 07:06 Attending Physician role handed off by Vitaly West DO ms3 07:06 Feng Gomez MD is Attending Physician. ms3 Administered Medications: 06:35 Drug: Ibuprofen PO 600 mg Route: PO; bp 08:49 Follow up: Response: No adverse reaction mb9 Medication: 06:17 VIS not applicable for this client. bp Outcome: 09:31 Discharge ordered by . rn 09:43 Discharged to home ambulatory, with family. mb9 09:43 Condition: stable 09:43 Discharge instructions given to patient, Instructed on discharge instructions, follow up and referral plans. Demonstrated understanding of instructions, follow-up care. 09:43 Patient left the ED. mb9 Signatures: Dispatcher [employer] EDFeng Bronson MD MD rn Hall, Patricia RN Kingsley Garza ph, RN RN Joanna Santiago ag3 Vitaly West, DO AVILES ms3 Andrew Lance RN RN as6 Sofia Hunt RN RN mb9
[2023-06-20 09:55] VITALS: BP 111/96; O2SAT 95
[2023-06-20 09:57] VITALS: TEMP 99.7
== END 2023-06-20 09:43 | disposition home or self-care (01) ==
LOC: ER 06:00
DX: U07.1 COVID-19 (principal); Z88.0 Allergy status to penicillin; Z88.3 Allergy status to other anti-infective agents
CPT/HCPCS: 71046; 87635; 87804; 99283

== ENCOUNTER 2025-01-01 08:02 | Emergency (ER) | payer SELFPAY ==
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
[2025-01-01] MEDS ORDERED: ONDANSETRON 4 MG/2 ML VIAL ONE (08:25)
[2025-01-01] MEDS ORDERED: NA CHLORIDE 0.9% 1,000 ML ONE (08:26)
[2025-01-01] MEDS ORDERED: FAMOTIDINE 20 MG/2 ML VIAL IV ONE (08:26)
[2025-01-01] MEDS ORDERED: MORPHINE 4 MG/ML SYR ONE (08:26)
[2025-01-01 08:58] LABS: Absolute Eosinophils 0.1 K/uL (0-0.5); Absolute Lymphocytes (CBC) 1.4 K/uL (0.7-4.9); Absolute Monocytes 0.3 K/uL (0.1-1.3); Absolute Neutrophil 4.3 K/uL (1.8-8.0); Basophils % 0.5 % (0-1.3); Eosinophils % 1.1 % (0-4.4); Hematocrit 39.8 % (36.0-45.0); Hemoglobin 13.4 g/dL (12.0-15.0); MCH 29.8 pg (27.0-35.0); MCHC 33.6 g/dL (32.0-36.0); MCV 88.8 fL (80-100); Monocytes % 5.5 % (3.3-12.3); Neutrophils % 69.9 % (41.7-73.7); Nucleated Red Blood Cells % 0.3 % (0-0); Platelets 212 thou/uL (152-406); RBC Red Blood Cell Count 4.48 M/uL (3.86-4.86); Red Cell Distribution Width 13.2 % (12.1-15.2)
[2025-01-01 09:04] LABS: Calcium Oxalate Crystals- Ur Few /HPF (None Seen); Transitional Epithelial <5 /HPF (None Seen); Urine Bacteria 20-50 /HPF (<20); Urine Bilirubin NEGATIVE (Negative); Urine Blood 3+ (Negative); Urine Clarity Extremely Turbid (Clear); Urine Color Yellow (Yellow); Urine Culture Reflex Order REFLEXED; Urine Glucose 1+ (Negative); Urine Ketones NEGATIVE (Negative); Urine Microscopic Reflex YN ORDER UMIC; Urine Mucus 1+ /HPF (None Seen); Urine Nitrite NEGATIVE (Negative); Urine Protein 1+ (Negative); Urine RBC >50 /HPF (None Seen); Urine Urobilinogen Normal (Normal); Urine WBC >50 /HPF (<5)
[2025-01-01 09:06] LABS: Albumin 3.5 g/dL (3.4-5.0); Albumin/Globulin Ratio 0.8 (1.1-1.8); Bilirubin Total 0.3 mg/dL (0.2-1.0); Globulin 4.5 g/dL (2.3-3.5)
--- NOTE | 2025-01-01 09:39 | RAD REPORT ---
EXAMINATION: US Abdomen Exam Limited CLINICAL HISTORY: ABD PAIN COMPARISON: None. TECHNIQUE: Limited upper abdominal grayscale and color flow sonographic images. FINDINGS: Gallbladder: Normal. Bile ducts: No intrahepatic or extrahepatic biliary dilatation. Common bile duct measures 2 mm. Liver: Visualized portions of the liver demonstrate diffuse parenchymal echogenicity suggesting steat osis. Small geographic regions of fatty sparing near the gallbladder bed. Fluid: No ascites. IMPRESSION: No abnormalities of the gallbladder and bile ducts. Diffuse hepatic steatosis.
--- NOTE | 2025-01-01 10:27 | RAD REPORT ---
EXAMINATION: CT Abdomen Pelvis W Contrast CLINICAL INDICATION: Female, 49 years old. ABD PAIN TECHNIQUE: CT abdomen and pelvis was performed, after the administration of IV contrast, as per [facility]. Axial, sagittal and coronal reconstructions were obtained. One or more of the following dose reduction techniques were used: Automated exposure control, adjustment of the mA and k V according to patient size, and iterative reconstruction. Unless otherwise specified, incidental findings do not require dedicated imaging follow-up. COMPARISON: 01/28/2023 FINDINGS: LOWER CHEST: The visualized lung bases are clear. LIVER: Significant fatty liver with hepatomegaly present. No focal lesion or biliary dilitation. BILIARY SYSTEM: No suspicious abnormalities. SPLEEN: Normal size. No focal lesion. PANCREAS: No mass, ductal dilation, or audie-pancreatic fluid. ADRENALS: Normal; no mass. KIDNEYS: Normal size and contour. Mild to moderate right hydronephrosis with 5 mm calculus at the lev el of the ureteropelvic junction. No hydronephrosis or obstructing calculi on the left. Upper and lower left renal nonobstructing 1-2 mm calculi. URINARY BLADDER: Unremarkable. GASTROINTESTINAL TRACT: No evidence of free air, significant intra-abdominal free fluid, bowel obstru ction or abscess. APPENDIX: Normal appendix. LYMPH NODES: No lymphadenopathy. MUSCULOSKELETAL: No acute or suspicious osseous abnormality. ADDITIONAL FINDINGS: None. IMPRESSION: Mild to moderate right hydronephrosis with 5 mm calculus at the ureteropelvic junction. Tiny nonobstructing left renal calculi. Pronounced hepatic steatosis.
[2025-01-01] MEDS ORDERED: TAMSULOSIN 0.4 MG SR CAP ONE (10:48)
[2025-01-01] MEDS ORDERED: KETOROLAC 30 MG/ML INJ ONE (10:48)
[2025-01-01] MEDS ORDERED: MAGNESIUM SULFATE 1 gm IVPB 1 GM/100 ML BAG IV ONE (10:48)
--- NOTE | 2025-01-01 12:53 | ER ---
Nurse's Notes [facility] Name: Salma Reid Age: 49 yrs Sex: Female : 1975 Arrival Date: 01/01/2025 Time: 08:02 Bed 14 Private MD: Diagnosis: Calculus of ureter;Fatty (change of) liver, not elsewhere classified Presentation: 01/01 08:20 Chief complaint: Patient states: RUQ pain that radiates to back that began yesterday, ss worse today now with N/V. Coronavirus screen: Client denies travel out of the [place] in the last 14 days. Ebola Screen: Patient denies exposure to infectious person. Patient denies travel to an Ebola-affected area in the 21 days before illness onset. Initial Sepsis Screen: Does the patient meet any 2 criteria? No. Patient's initial sepsis screen is negative. Does the patient have a suspected source of infection? No. Patient's initial sepsis screen is negative. Risk Assessment: Do you want to hurt yourself or someone else? Patient reports no desire to harm self or others. Onset of symptoms was December 31, 2024. 08:20 Method Of Arrival: Ambulatory ss 08:20 Acuity: YESSENIA 3 ss Historical: - Allergies: 08:22 Clindamycin; ss 08:22 PENICILLINS; ss - PMHx: 08:22 fatty liver; Prediabetic; Rheumatoid Arthritis; ss - PSHx: 08:22 ; tubal ligation; ss - Infectious Disease History:: Denies. - Social history:: Smoking status: Patient denies any tobacco usage or history of. - Family history:: not pertinent. - Hospitalizations: : No recent hospitalization is reported. Screenin:43 [facility] ED Fall Risk Assessment (Adult) History of falling in the last 3 months, kc6 including since admission No falls in past 3 months (0 pts) Confusion or Disorientation No (0 pts) Intoxicated or Sedated No (0 pts) Impaired Gait No (0 pts) Mobility Assist Device Used No (0 pt) Altered Elimination No (0 pt) Score/Fall Risk Level 0 - 2 = Low Risk Oriented to surroundings, Maintained a safe environment, Educated pt \T\ family on fall prevention, incl call for assistance when getting out of bed. Abuse screen: Denies threats or abuse. Denies injuries from another. Nutritional screening: No deficits noted. Tuberculosis screening: No symptoms or risk factors identified. Assessment: 08:44 General: Appears in no apparent distress. uncomfortable, well groomed, well developed, kc6 Behavior is calm, cooperative, appropriate for age. Pain: Complains of pain in right upper quadrant and right lower quadrant. Neuro: Level of Consciousness is awake, alert, obeys commands, Oriented to person, place, time, situation, Appropriate for age. Cardiovascular: Capillary refill < 3 seconds. Respiratory: Airway is patent Trachea midline Respiratory effort is even, unlabored, Respiratory pattern is regular, symmetrical. GI: Abdomen is round non-distended, Bowel sounds present X 4 quads. Abd is soft X 4 quads Abdomen is tender to palpation in right upper quadrant and right lower quadrant Reports lower abdominal pain, upper abdominal pain, nausea, vomiting, Patient currently denies bloody stool, diarrhea. : No signs and/or symptoms were reported regarding the genitourinary system. Urine is cloudy. EENT: No signs and/or symptoms were reported regarding the EENT system. Derm: No signs and/or symptoms reported regarding the dermatologic system. Skin is intact, is healthy with good turgor, Skin is dry, Skin is pale, Skin temperature is warm. Musculoskeletal: No signs and/or symptoms reported regarding the musculoskeletal system. Circulation, motion, and sensation intact. Range of motion: intact in all extremities. 09:44 Reassessment: Patient appears in no apparent distress at this time. No changes from kc6 previously documented assessment. Patient and/or family updated on plan of care and expected duration. Pain level reassessed. Patient is alert, oriented x 3, equal unlabored respirations, skin warm/dry/pink. 10:29 Reassessment: Patient appears in no apparent distress at this time. No changes from kc6 previously documented assessment. Patient and/or family updated on plan of care and expected duration. Pain level reassessed. Patient is alert, oriented x 3, equal unlabored respirations, skin warm/dry/pink. 11:26 Reassessment: Patient appears in no apparent distress at this time. No changes from kc6 previously documented assessment. Patient and/or family updated on plan of care and expected duration. Pain level reassessed. Patient is alert, oriented x 3, equal unlabored respirations, skin warm/dry/pink. 12:59 Reassessment: Patient appears in no apparent distress at this time. No changes from kc6 previously documented assessment. Patient and/or family updated on plan of care and expected duration. Pain level reassessed. Patient is alert, oriented x 3, equal unlabored respirations, skin warm/dry/pink. Vital Signs: 08:20 BP 122 / 73; Pulse 83; Resp 15; Temp 98(TE); Pulse Ox 97% on R/A; Weight 81.19 kg; ss Height 5 ft. 1 in. ; Pain 8/10; 10:29 BP 116 / 67; Pulse 66; Resp 16 S; Pulse Ox 99% on R/A; kc6 08:20 Body Mass Index 33.82 (81.19 kg, 154.94 cm) ss 08:20 Pain Scale: Adult ss ED Course: 08:05 Patient arrived in ED. al6 08:06 Feng Gomez MD is Attending Physician. rn 08:09 Nisa Blair RN is Primary Nurse. kc6 08:22 Triage completed. ss 08:22 Arm band placed on right wrist. ss 08:43 Patient has correct armband on for positive identification. Placed in gown. Bed in low kc6 position. Call light in reach. Side rails up X 1. Adult w/ patient. Pulse ox on. NIBP on. Door closed. Noise minimized. Lights dimmed. Warm blanket given. Pillow given. Verbal reassurance given. 08:43 Inserted saline lock: 20 gauge in right forearm, using aseptic technique. Blood kc6 collected. Flushed with 10 mL NS. Patient maintains SpO2 saturation greater than 95% on room air. 08:51 US Abdomen Limited In Process Unspecified. EDMS 09:18 CT Abd/Pelvis - IV Contrast Only In Process Unspecified. EDMS 13:12 No provider procedures requiring assistance completed. IV discontinued, intact, kc6 bleeding controlled, No redness/swelling at site. Pressure dressing applied. Administered Medications: 08:42 Drug: Famotidine IVP 20 mg IVP once; dilute with 10 mL 0.9% NaCl; give over 2 minutes kc6 Route: IVP; Site: right forearm; 09:40 Follow up: Response: No adverse reaction kc6 08:42 Drug: Ondansetron IVP 4 mg IVP once; over 2 minutes Route: IVP; Site: right forearm; kc6 09:40 Follow up: Response: No adverse reaction kc6 08:42 Drug: morphine IVP or IV 4 mg IVP once over 4 mins Route: IVP; Infused Over: 4 mins; kc6 Site: right forearm; 09:40 Follow up: Response: No adverse reaction; Pain is decreased; RASS: Alert and Calm (0) kc6 08:42 Drug: NS 0.9% IV 1000 ml IV at 1 bolus Per protocol; to be given as a bolus over 60 kc6 minutes Route: IV; Rate: 1 bolus; Site: right forearm; 10:30 Follow up: Response: No adverse reaction; IV Status: Completed infusion; IV Intake: kc6 1000ml 10:54 Drug: Magnesium Sulfate IVPB 1 grams IVPB once over 1 hrs Route: IVPB; Infused Over: 1 kc6 hrs; Site: right antecubital; 11:54 Follow up: Response: No adverse reaction; IV Status: Completed infusion; IV Intake: kc6 100ml 10:54 Drug: Flomax PO 0.4 mg PO once Route: PO; kc6 11:51 Follow up: Response: No adverse reaction kc6 10:54 Drug: Ketorolac IVP 15 mg IVP once Route: IVP; Site: right antecubital; kc6 11:51 Follow up: Response: No adverse reaction; Pain is decreased kc6 Medication: 13:13 VIS not applicable for this client. kc6 Intake: 10:30 IV: 1000ml; Total: 1000ml. kc6 11:54 IV: 100ml; Total: 1100ml. kc6 Outcome: 12:52 Discharge ordered by . rn 13:12 Discharged to home ambulatory, with significant other, kc 13:12 Condition: improved 13:12 Discharge instructions given to patient, significant other, Instructed on discharge instructions, follow up and referral plans. medication usage, Demonstrated understanding of instructions, follow-up care, medications, Prescriptions given X 4, 13:13 Patient left the ED. kc6 Addendum: 01/04/2025 16:46 Addendum: Culture Results: Positive urine culture. No further action required. Bacteria h b sensitive to prescribed antibiotic. Signatures: Dispatcher [employer] EDMS Feng Gomez MD MD rn Blanchard, Shelby, RN RN Corrina Cohen RN RN hb Campbell, Kaitlyn, RN RN kc6 Zahraa Castellano
--- NOTE | 2025-01-01 12:53 | EDPHYS ---
Physician Documentation [facility] Name: Salma Reid Age: 49 yrs Sex: Female : 1975 Arrival Date: 01/01/2025 Time: 08:02 Bed 14 Private MD: ED Physician Feng Gomez HPI: 01/01 09:05 This 49 yrs old Female presents to ER via Ambulatory with complaints of rn Abdominal Pain, Fever, Vomiting. 09:07 This 49 yrs old Female presents to ER via Ambulatory with complaints of rn Abdominal Pain, Fever, Vomiting. 09:07 The patient presents with abdominal pain in the right upper quadrant. Onset: The rn symptoms/episode began/occurred last night. The symptoms do not radiate. Associated signs and symptoms: Pertinent positives: nausea, vomiting, Pertinent negatives: blood in stools, chest pain. The symptoms are described as achy. Modifying factors: The symptoms are alleviated by nothing, the symptoms are aggravated by nothing. Severity of pain: At its worst the pain was moderate in the emergency department the pain is unchanged. The patient has not experienced similar symptoms in the past. Patient reports right upper quadrant abdominal pain that began yesterday. Associated with nausea and vomiting. No blood in emesis. Reports subjective fever and chills. No sick contacts. Saw her physician yesterday for regular checkup and told had fatty liver but no other acute findings and her lab work. Patient did not have abdominal pain at that time of visit. No chest pain.. Historical: - Allergies: 08:22 Clindamycin; ss 08:22 PENICILLINS; ss - PMHx: 08:22 fatty liver; Prediabetic; Rheumatoid Arthritis; ss - PSHx: 08:22 ; tubal ligation; ss - Infectious Disease History:: Denies. - Social history:: Smoking status: Patient denies any tobacco usage or history of. - Family history:: not pertinent. - Hospitalizations: : No recent hospitalization is reported. ROS: 09:07 Constitutional: Positive for subjective fever and chills Cardiovascular: Negative for rn chest pain, palpitations, and edema, Respiratory: Negative for shortness of breath, cough, wheezing, and pleuritic chest pain, Abdomen/GI: Positive for right upper quadrant abdominal pain with vomiting Back: Negative for injury and pain, MS/Extremity: Negative for injury and deformity, Neuro: Negative for headache, weakness, numbness, tingling, and seizure, Exam: 09:07 Constitutional: This is a well developed, well nourished patient who is awake, alert, rn appears uncomfortable Cardiovascular: Regular rate and rhythm. No pulse deficits. Respiratory: No increased work of breathing, no retractions or nasal flaring. Abdomen/GI: Soft, right upper quadrant tenderness, no rebound or guarding MS/ Extremity: Pulses equal, no cyanosis. Neuro: Awake and alert, GCS 15 Vital Signs: 08:20 BP 122 / 73; Pulse 83; Resp 15; Temp 98(TE); Pulse Ox 97% on R/A; Weight 81.19 kg; ss Height 5 ft. 1 in. ; Pain 8/10; 10:29 BP 116 / 67; Pulse 66; Resp 16 S; Pulse Ox 99% on R/A; kc6 08:20 Body Mass Index 33.82 (81.19 kg, 154.94 cm) ss 08:20 Pain Scale: Adult ss MDM: 08:06 Medical Screening Exam initiated rn 12:51 Differential diagnosis: cholecystitis, Cholelithiasis, diverticulitis, gastritis, rn gastroesophageal reflux disease, non-specific abd pain, pancreatitis, Peptic Ulcer Disease, Perf. Duodenal Ulcer, Perf. Gastric Ulcer, Ureterolithiasis. Data reviewed: vital signs, nurses notes, lab test result(s), radiologic studies, CT scan, and as a result, I will discharge patient. Counseling: I had a detailed discussion with the patient and/or guardian regarding the historical points, exam findings, and any diagnostic results supporting the discharge/admit diagnosis, lab results, radiology results, the need for outpatient follow up, to return to the emergency department if symptoms worsen or persist or if there are any questions or concerns that arise at home. Response to treatment: the patient's symptoms have markedly improved after treatment, and as a result, I will discharge patient. Special discussion: I discussed with the patient/guardian in detail that at this point there is no indication for admission to the hospital. It is understood, however, that if the symptoms persist or worsen the patient needs to return immediately for re-evaluation. Based on the history and exam findings, there is no indication for further emergent testing or inpatient evaluation. I discussed with the patient/guardian the need to see the primary care provider for further evaluation of the symptoms. I discussed with the patient/guardian the need to see the urologist for further evaluation of the symptoms. ED course: CT shows 5 mm proximal ureteral stone. Patient's pain has improved, nearly resolved, declines any further pain medication at this time. Will discharge home with return precautions, pain meds, antibiotics. Ultrasound negative for acute gallbladder problems. Discussed fatty liver with patient and need for dietary changes. I have personally reviewed all of the results, including but not limited to blood tests and imaging deemed necessary to safely discharge this patient at this time. All results given to and printed out for patient. I personally went over all the results with the patient and answered all questions. Patient will follow-up with PCP and or specialist as discussed. Return precautions given and understood.. 01/01 08:21 Order name: CBC with Diff; Complete Time: 09:06 rn 01/01 08:21 Order name: CMP; Complete Time: 10:37 rn 01/01 08:21 Order name: Lipase; Complete Time: 10:37 rn 01/01 08:21 Order name: Urinalysis w/ reflexes; Complete Time: 09:06 rn 01/01 09:08 Order name: Urine Culture EDRI 01/01 08:21 Order name: CT Abd/Pelvis - IV Contrast Only; Complete Time: 10:37 rn 01/01 08:21 Order name: US Abdomen Limited; Complete Time: 10:37 rn 01/01 08:21 Order name: IV Saline Lock; Complete Time: 08:42 rn 01/01 08:21 Order name: Labs collected and sent; Complete Time: 08:42 rn Administered Medications: 08:42 Drug: Famotidine IVP 20 mg IVP once; dilute with 10 mL 0.9% NaCl; give over 2 minutes kc6 Route: IVP; Site: right forearm; 09:40 Follow up: Response: No adverse reaction kc6 08:42 Drug: Ondansetron IVP 4 mg IVP once; over 2 minutes Route: IVP; Site: right forearm; kc6 09:40 Follow up: Response: No adverse reaction kc6 08:42 Drug: morphine IVP or IV 4 mg IVP once over 4 mins Route: IVP; Infused Over: 4 mins; kc6 Site: right forearm; 09:40 Follow up: Response: No adverse reaction; Pain is decreased; RASS: Alert and Calm (0) kc6 08:42 Drug: NS 0.9% IV 1000 ml IV at 1 bolus Per protocol; to be given as a bolus over 60 kc6 minutes Route: IV; Rate: 1 bolus; Site: right forearm; 10:30 Follow up: Response: No adverse reaction; IV Status: Completed infusion; IV Intake: kc6 1000ml 10:54 Drug: Magnesium Sulfate IVPB 1 grams IVPB once over 1 hrs Route: IVPB; Infused Over: 1 kc6 hrs; Site: right antecubital; 11:54 Follow up: Response: No adverse reaction; IV Status: Completed infusion; IV Intake: kc6 100ml 10:54 Drug: Flomax PO 0.4 mg PO once Route: PO; kc6 11:51 Follow up: Response: No adverse reaction kc6 10:54 Drug: Ketorolac IVP 15 mg IVP once Route: IVP; Site: right antecubital; kc6 11:51 Follow up: Response: No adverse reaction; Pain is decreased kc6 Disposition Summary: 01/01/25 12:52 Discharge Ordered Notes: Location: Home rn Problem: new rn Symptoms: have improved rn Condition: Stable rn Diagnosis - Calculus of ureter rn - Fatty (change of) liver, not elsewhere classified rn Followup: rn - With: Private Physician - When: As needed - Reason: Recheck today's complaints, Re-evaluation by your physician Discharge Instructions: - Discharge Summary Sheet rn - Kidney Stones rn - Renal Colic rn - Nonalcoholic Fatty Liver Disease Diet, Adult rn Forms: - Medication Reconciliation Form rn - Antibiotic [employer] intern - Prescription Opioid Use rn - Patient Portal Instructions rn - Leadership Thank You Letter rn Prescriptions: - Flomax 0.4 mg Oral capsule - take 1 capsule ORAL route every 24 hours As needed Stop taking when you feel rn that you have passed your stone; 10 capsule; Refills: 0, Product Selection Permitted - ondansetron 4 mg Oral Tablet,disintegrating - take 1 tablet ORAL route every 8 hours As needed; 12 tablet; Refills: 0, rn Product Selection Permitted - Cipro 500 mg Oral Tablet - take 1 tablet ORAL route every 12 hours for 7 days; 14 tablet; Refills: 0, rn Product Selection Permitted - Tramadol 50 mg Oral Tablet - take 1 tablet ORAL route every 8 hours as needed; 12 tablet; Refills: 0, rn Product Selection Permitted Signatures: Dispatcher [employer] EDMS Feng Gomez MD MD rn Blanchard, Shelby, RN RN Nisa Ricardo RN RN kc6 Corrections: (The following items were deleted from the chart) 08:22 Abdomen Pelvis W Con+CT.RAD.BRZ ordered. EDMS EDMS 08:22 Abdomen Limited+US.RAD.BRZ ordered. EDMS EDMS
[2025-01-01 13:18] VITALS: TEMP 98
[2025-01-01 13:19] VITALS: BP 116/67; O2SAT 99
== END 2025-01-01 13:13 | disposition home or self-care (01) ==
LOC: ER 08:02
DX: N20.1 Calculus of ureter (principal); K76.0 Fatty (change of) liver, not elsewhere classified
CPT/HCPCS: 36415; 74177; 76705; 80053; 81001; 83690; 85025; 87077; 87086; 87088; 87186; 99284; J2405; J3475; J7030; Q9967